=== PATIENT | male | born 1995 | race Caucasian/White ===

== ENCOUNTER 2019-04-25 21:37 | Emergency (ER) | payer OTHER, SELFPAY ==
--- OUTSIDE RECORDS SUMMARY | 2019-04-25 21:38 | XMS REPORT ---
:1995 [facility] Address [address] [place] [address] Dr. Almazan [address] [place] [id number] Care Team Providers Name Role Phone Unavailable Unavailable Unavailable Problems This patient has no known problems. Allergies, Adverse Reactions, Alerts This patient has no known allergies or adverse reactions. Medications This patient has no known medications.
[2019-04-25] MEDS ORDERED: ONDANSETRON 4 MG/2 ML VIAL ONE (22:13)
[2019-04-25] MEDS ORDERED: NA CHLORIDE 0.9% 1,000 ML ONE (22:13)
[2019-04-25] MEDS ORDERED: FAMOTIDINE 20 MG/2 ML VIAL IV ONE (22:13)
[2019-04-25 22:23] LABS: Absolute Lymphocytes (CBC) 1.5 K/uL (0.7-4.9); Basophils % 0.2 % (0-1.3); Hematocrit 43.7 % (39.6-49.0); Lymphocytes % 13.9 % (15.3-44.8); MPV 8.6 fL (7.6-11.3)
[2019-04-25 22:39] LABS: ALT/SGPT 36 U/L (12-78); AST/SGOT 21 U/L (15-37); Albumin 4.3 g/dL (3.4-5.0); Alkaline Phosphatase 53 U/L (45-117); BUN Blood Urea Nitrogen 17 mg/dL (7-18); Bicarbonate 27 mmol/L (21-32); Bilirubin Direct 0.2 mg/dL (0-0.2); Bilirubin Total 0.5 mg/dL (0.2-1.0); Glucose Level 90 mg/dL (74-106); Lipase 81 U/L (73-393); Potassium 3.7 mmol/L (3.5-5.1); Protein, Total 7.1 g/dL (6.4-8.2); Sodium Level 142 mmol/L (136-145)
--- NOTE | 2019-04-26 00:57 | ER ---
Nurse's Notes [facility] Name: Pako Fontaine Age: 23 yrs Sex: Male : 1995 Arrival Date: 04/25/2019 Time: 21:39 Bed 6 Private MD: Diagnosis: Diarrhea, unspecified Presentation: 04/25 21:46 Presenting complaint: Patient states: Diarrhea for 1.5 months with nausea. Past few ca1 days been feeling weak and dizzy. Pt also c/o headache. Transition of care: patient was not received from another setting of care. Onset of symptoms was April 25, 2019. Risk Assessment: Do you want to hurt yourself or someone else? Patient reports no desire to harm self or others. Initial Sepsis Screen: Does the patient meet any 2 criteria? No. Patient's initial sepsis screen is negative. Does the patient have a suspected source of infection? No. Patient's initial sepsis screen is negative. Care prior to arrival: None. 21:46 Method Of Arrival: Ambulatory ca1 21:46 Acuity: [place] 3 ca1 Historical: - Allergies: 21:48 Amoxicillin; ca1 - Home Meds: 21:48 None [Active]; ca1 - PMHx: 21:48 None; ca1 - PSHx: 21:48 Tonsillectomy; ca1 - Immunization history:: Adult Immunizations up to date, Flu vaccine is up to date. - Coronavirus screen:: The patient has NOT traveled to [place] in the past 14 days. The patient has NOT had contact with known/suspected case of Coronavirus?. - Social history:: Smoking status: Patient reports the use of cigarette tobacco products, 2-3 cigarettes a day. - Ebola Screening: : Patient negative for fever greater than or equal to 101.5 degrees Fahrenheit, and additional compatible Ebola Virus Disease symptoms Patient denies exposure to infectious person Patient denies travel to an Ebola-affected area in the 21 days before illness onset No symptoms or risks identified at this time. Screenin:52 Abuse screen: Denies threats or abuse. Denies injuries from another. Nutritional lp1 screening: No deficits noted. Tuberculosis screening: No symptoms or risk factors identified. Fall Risk None identified. Assessment: 21:50 General: Appears in no apparent distress. slender, Behavior is calm, cooperative, lp1 Reports fatigue for for months. Pain: Denies pain. Neuro: Level of Consciousness is awake, alert, obeys commands, Oriented to person, place, time, situation. Cardiovascular: Patient's skin is warm and dry. Respiratory: Respiratory effort is even, Respiratory pattern is regular. GI: Abdomen is flat, Bowel sounds present X 4 quads. Reports diarrhea, nausea. : No signs and/or symptoms were reported regarding the genitourinary system. EENT: No signs and/or symptoms were reported regarding the EENT system. Derm: Skin is intact, Skin is dry, Skin is normal. Musculoskeletal: No deficits noted. 23:30 Reassessment: Patient appears in no apparent distress at this time. Patient resting, lp1 eyes closed, respirations unlabored. 04/26 00:22 Reassessment: Patient appears in no apparent distress at this time. Patient returned lp1 from CT at this time; no complaints. 01:14 Reassessment: Patient appears in no apparent distress at this time. Patient is alert, rr5 oriented x 3, equal unlabored respirations, skin warm/dry/pink. discharge instruction given and explained without complaints made. Vital Signs: 04/25 21:48 BP 141 / 80; Pulse 69; Resp 16 S; Temp 98.4(O); Pulse Ox 100% on R/A; Weight 70.31 kg ca1 (R); Height 6 ft. 1 in. (185.42 cm) (R); Pain 6/10; 04/26 00:22 BP 133 / 75; Pulse 62; Resp 16; Pulse Ox 98% on R/A; lp1 01:14 BP 123 / 71; Pulse 65; Resp 17; Temp 98.2; Pulse Ox 99% ; rr5 04/25 21:48 Body Mass Index 20.45 (70.31 kg, 185.42 cm) ca1 ED Course: 04/25 21:39 Patient arrived in ED. ag3 21:43 Jayesh Barber PA is PHCP. cp 21:43 Duke Nicholas MD is Attending Physician. cp 21:47 Loretta Moore, DEONNA is Primary Nurse. lp1 21:47 Triage completed. ca1 21:48 Arm band placed on right wrist. ca1 21:52 Patient has correct armband on for positive identification. Placed in gown. lp1 22:05 Inserted saline lock: 20 gauge in right forearm, using aseptic technique. Blood lp1 collected. 04/26 00:23 No provider procedures requiring assistance completed. lp1 00:54 Candido Simon MD is Referral Physician. cp 01:15 IV discontinued, intact, bleeding controlled, No redness/swelling at site. Pressure rr5 dressing applied. Administered Medications: 04/25 22:18 Drug: Pepcid 20 mg Route: IVP; Site: right forearm; lp1 23:40 Follow up: Response: No adverse reaction lp1 22:18 Drug: NS 0.9% 1000 ml Route: IV; Rate: 1 bolus; Site: right forearm; lp1 23:30 Follow up: IV Status: Completed infusion; IV Intake: 1000ml lp1 22:19 Drug: Zofran 4 mg Route: IVP; Site: right forearm; lp1 23:40 Follow up: Response: No adverse reaction lp1 Intake: 23:30 IV: 1000ml; Total: 1000ml. lp1 Outcome: 04/26 00:56 Discharge ordered by . cp 01:15 Patient left the ED. rr5 01:15 Discharged to home ambulatory. rr5 01:15 Condition: stable 01:15 Discharge instructions given to patient, Instructed on discharge instructions, follow up and referral plans. Demonstrated understanding of instructions, follow-up care. Signatures: Loretta Moore RN RN lp1 Jayesh Barber PA PA cp Gomez, Alice ag3 Zack Rodriguez RN RN rr5 Trisha Gilliam RN RN ca1
--- NOTE | 2019-04-26 00:57 | EDPHYS ---
Physician Documentation [facility] Name: Pako Fontaine Age: 23 yrs Sex: Male : 1995 Arrival Date: 04/25/2019 Time: 21:39 Bed 6 Private MD: ED Physician Duke Nicholas HPI: 04/25 21:59 This 23 yrs old Male presents to ER via Ambulatory with complaints of cp Diarrhea. 21:59 The patient presents to the emergency department with diarrhea. Onset: The cp symptoms/episode began/occurred 1.5 month(s) ago. Possible causes: unknown. Associated signs and symptoms: Pertinent positives: anorexia, nausea, Pertinent negatives: abdominal pain, fever, GI bleeding, vomiting. Historical: - Allergies: 21:48 Amoxicillin; ca1 - Home Meds: 21:48 None [Active]; ca1 - PMHx: 21:48 None; ca1 - PSHx: 21:48 Tonsillectomy; ca1 - Immunization history:: Adult Immunizations up to date, Flu vaccine is up to date. - Coronavirus screen:: The patient has NOT traveled to [place] in the past 14 days. The patient has NOT had contact with known/suspected case of Coronavirus?. - Social history:: Smoking status: Patient reports the use of cigarette tobacco products, 2-3 cigarettes a day. - Ebola Screening: : Patient negative for fever greater than or equal to 101.5 degrees Fahrenheit, and additional compatible Ebola Virus Disease symptoms Patient denies exposure to infectious person Patient denies travel to an Ebola-affected area in the 21 days before illness onset No symptoms or risks identified at this time. ROS: 22:05 Constitutional: Negative for body aches, chills, fever, weight loss. cp 22:05 Eyes: Negative for injury, pain, redness, and discharge. cp 22:05 ENT: Negative for drainage from ear(s), ear pain, sore throat, difficulty swallowing, difficulty handling secretions. 22:05 Cardiovascular: Negative for chest pain. 22:05 Respiratory: Negative for cough, shortness of breath, wheezing. 22:05 Abdomen/GI: Positive for nausea, diarrhea, anorexia, Negative for abdominal pain, vomiting, constipation, black/tarry stool, rectal bleeding. 22:05 : Negative for urinary symptoms, testicular pain 22:05 Skin: Negative for rash. 22:05 Neuro: Negative for altered mental status, headache, weakness. 22:05 All other systems are negative. Exam: 22:15 Constitutional: The patient appears in no acute distress, alert, awake, non-toxic, well cp developed, well nourished. 22:15 Head/Face: Normocephalic, atraumatic. cp 22:15 Eyes: Periorbital structures: appear normal, Conjunctiva: normal, no exudate, no injection, Sclera: no appreciated abnormality, Lids and lashes: appear normal, bilaterally. 22:15 ENT: External ear(s): are unremarkable, Nose: is normal, Mouth: Lips: moist, Oral mucosa: pink and intact, moist, Posterior pharynx: is normal, airway is patent, no erythema, no exudate. 22:15 Chest/axilla: Inspection: normal, Palpation: is normal, no crepitus, no tenderness. 22:15 Cardiovascular: Rate: normal, Rhythm: regular. 22:15 Respiratory: the patient does not display signs of respiratory distress, Respirations: normal, no use of accessory muscles, labored breathing, is not present, Breath sounds: are clear throughout, no decreased breath sounds. 22:15 Abdomen/GI: Inspection: abdomen appears normal, Bowel sounds: active, all quadrants, Palpation: abdomen is soft and non-tender, in all quadrants, rebound tenderness, is not appreciated, voluntary guarding, is not appreciated, involuntary guarding, is not appreciated. 22:15 Back: pain, is absent, ROM is normal. 22:15 Skin: no rash present. Vital Signs: 21:48 BP 141 / 80; Pulse 69; Resp 16 S; Temp 98.4(O); Pulse Ox 100% on R/A; Weight 70.31 kg ca1 (R); Height 6 ft. 1 in. (185.42 cm) (R); Pain 6/10; 04/26 00:22 BP 133 / 75; Pulse 62; Resp 16; Pulse Ox 98% on R/A; lp1 01:14 BP 123 / 71; Pulse 65; Resp 17; Temp 98.2; Pulse Ox 99% ; rr5 04/25 21:48 Body Mass Index 20.45 (70.31 kg, 185.42 cm) ca1 MDM: 04/25 21:45 Patient medically screened. cp 22:00 Differential diagnosis: gastritis, gastroenteritis, colitis, infectious diarrhea, cp hepatitis. 04/26 00:55 Data reviewed: vital signs, nurses notes, lab test result(s), radiologic studies, CT cp scan, I have discussed the patient's presentation/case with the attending Emergency Department Physician; and as a result, I will discharge patient. 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 04/25 21:59 Order name: Basic Metabolic Panel cp 04/25 21:59 Order name: CBC with Diff cp 04/25 21:59 Order name: Creatinine for Radiology cp 04/25 21:59 Order name: Hepatic Function cp 04/25 21:59 Order name: Lipase cp 04/25 22:37 Order name: Creatinine (Radiology Only); Complete Time: 23:40 EDMS 04/25 22:42 Order name: Basic Metabolic Panel; Complete Time: 23:40 EDMS 04/25 22:42 Order name: Liver (Hepatic) Function; Complete Time: 23:40 EDMS 04/25 22:42 Order name: Lipase; Complete Time: 23:40 EDMS 04/25 22:42 Order name: CBC with Automated Diff; Complete Time: 23:40 EDMS 04/26 00:47 Interpretation: Normal except: WBC 11.0; CHRISTY% 79.8; LYM% 13.9; NEUT A 8.8. cp 04/25 23:41 Order name: CT Abd/Pelvis - IV Contrast Only cp 04/25 23:41 Order name: Stool Culture cp 04/25 23:41 Order name: CDIFF cp 04/25 21:59 Order name: IV Saline Lock; Complete Time: 22:09 cp 04/25 21:59 Order name: Labs collected and sent; Complete Time: 22:09 cp Administered Medications: 04/25 22:18 Drug: Pepcid 20 mg Route: IVP; Site: right forearm; lp1 23:40 Follow up: Response: No adverse reaction lp1 22:18 Drug: NS 0.9% 1000 ml Route: IV; Rate: 1 bolus; Site: right forearm; lp1 23:30 Follow up: IV Status: Completed infusion; IV Intake: 1000ml lp1 22:19 Drug: Zofran 4 mg Route: IVP; Site: right forearm; lp1 23:40 Follow up: Response: No adverse reaction lp1 Disposition: 04/26 01:57 Co-signature as Attending Physician, Duke Nicholas MD. rn Disposition: 04/26/19 00:56 Discharged to Home. Impression: Diarrhea, unspecified. - Condition is Stable. - Discharge Instructions: Food Choices to Help Relieve Diarrhea, Adult, Diarrhea, Adult. - Medication Reconciliation Form, Thank You Letter, Antibiotic Education, Prescription Opioid Use form. - Follow up: Candido Simon MD; When: 1 - 2 days; Reason: Recheck today's complaints. - Problem is an ongoing problem. - Symptoms have improved. Signatures: Dispatcher [employer] EDMS Duke Nicholas MD MD rn Loretta Moore RN RN lp1 Jayesh Barber PA PA cp Roque, Raymond RN RN rr5 Trisha Gilliam RN RN ca1 Corrections: (The following items were deleted from the chart) 01:15 00:56 04/26/2019 00:56 Discharged to Home. Impression: Diarrhea, unspecified. Condition rr5 is Stable. Forms are Medication Reconciliation Form, Thank You Letter, Antibiotic Education, Prescription Opioid Use. Follow up: Candido Simon; When: 1 - 2 days; Reason: Recheck today's complaints. Problem is an ongoing problem. Symptoms have improved. cp
--- NOTE | 2019-04-26 08:35 | RAD REPORT ---
EXAM DESCRIPTION: CT - Abdomen Pelvis W Contrast - 04/26/2019 1:52 am CLINICAL HISTORY: The patient is 23 years old and is Male; diarrhea times 1.5 months TECHNIQUE: Axial computed tomography images of the abdomen and pelvis with intravenous contrast. S agittal and coronal reformatted images were created and reviewed. This CT exam was performed using one or more of the following dose reduction techniques: automated exposure control, adjustment of t he mA and/or kV according to patient size, and/or use of iterative reconstruction technique. COMPARISON: No relevant prior studies available. FINDINGS: LUNG BASES: Unremarkable. No mass. No consolidation. ABDOMEN: LIVER: Periportal edema is visualized within the liver. No liver masses identified. GALLBLADDER AND BILE DUCTS: The gallbladder is contracted. PANCREAS: No ductal dilation. No mass. SPLEEN: Unremarkable. ADRENALS: Unremarkable. No mass. KIDNEYS AND URETERS: Unremarkable. The kidneys enhance symmetrically. No obstructing renal or ur eteral calculus is seen. No hydronephrosis or hydroureter. No perinephric fluid or stranding. STOMACH AND BOWEL: The stomach is moderately distended with food contents. The small bowel is no rmal in caliber. A moderate amount stool is present throughout colon. There is no mucosal thickening or evidence of bowel obstruction. PELVIS: APPENDIX: The appendix is normal in caliber without surrounding inflammation. BLADDER: The bladder is well distended. REPRODUCTIVE: Unremarkable as visualized. ABDOMEN and PELVIS: INTRAPERITONEAL SPACE: Unremarkable. No free air. No significant fluid collection. BONES/JOINTS: No acute fracture. SOFT TISSUES: The soft tissues are normal. VASCULATURE: Unremarkable. No abdominal aortic aneurysm. LYMPH NODES: Unremarkable. No enlarged lymph nodes. IMPRESSION: 1. Moderate stool burden without obstruction. 2. Periportal edema. This finding is nonspecific and can be seen with vigorous intravenous hydratio n as well as hepatitis. Clinical correlation is recommended. Electronically signed by: Rhina Castillo MD 04/26/2019 12:37 AM PARALEGAL INSTRUCTOR Due to temporary technical issues with the PACS/Fluency reporting system, reports are being signed by the in house radiologist as a courtesy to ensure prompt reporting. The interpreting radiologist is f ully responsible for the content of the report.
[2019-04-26 17:22] VITALS: BP 123/71; TEMP 98.2; O2SAT 99
== END 2019-04-26 01:15 | disposition home or self-care (01) ==
LOC: ER 21:37
DX: R19.7 Diarrhea, unspecified (principal); Z72.0 Tobacco use; Z88.1 Allergy status to other antibiotic agents
CPT/HCPCS: 36415; 74177; 80048; 80076; 83690; 85025; 96361; 96374; 96375; 99283; J2405; J7030; Q9967

== ENCOUNTER 2019-05-14 16:33 | Emergency (ER) | payer OTHER ==
--- OUTSIDE RECORDS SUMMARY | 2019-05-14 16:34 | XMS REPORT ---
:1995 [facility] Address [address] [place] [address] Dr. Almazan [address] [place] [id number] Care Team Providers Name Role Phone Unavailable Unavailable Unavailable Problems This patient has no known problems. Allergies, Adverse Reactions, Alerts This patient has no known allergies or adverse reactions. Medications This patient has no known medications.
--- OUTSIDE RECORDS SUMMARY | 2019-05-14 16:35 | XMS REPORT | Summary of Care ---
:1995 Author Organization [facility] [employer] Address [address] [place] [id number] Care Team Providers Name Role Phone Pcp, Patient Does Not Have A Primary Care Provider Reason for Referral Radiology Services (STAT) Status Reason Specialty Diagnoses / Referred By Referred To Procedures Contact Contact New Request Diagnostic Diagnoses Finger injury, right, initial encounter Erickson Renae Radiology Procedures XR HAND 3+ VW RIGHT XR HAND <3 VW RIGHT III, PA [address] [facility] [place] [place] [address] Reason for Visit Reason Comments Finger Pain Right Index Finger Auth/Cert Status Reason Specialty Diagnoses / Referred By Referred To Procedures Contact Contact [facility] [address] [place] [address] Encounter Details Date Type Department Care Team Description 11/11/2018 Emergency ADC-Emergency Erickson Renae III, Finger injury, right, Department PA initial encounter [address] [facility] [address] [facility] (Primary Dx) [place] [address] [place] [address] Allergies Active Allergy Reactions Severity Noted Date Comments Amoxicillin Unknown - See comments 01/17/2017 documented as of this encounter (statuses as of 11/11/2018) Medications Medication Sig Dispensed Refills Start Date End Date Status ondansetron (ZOFRAN, Take 1 tablet by 12 tablet 0 01/17/2017 Active HYDROCHLORIDE,) 4 mouth every 8 mg tablet (eight) hours as needed for Nausea and Vomiting (N/V). dicyclomine (BENTYL) Take 1 tablet by 20 tablet 0 01/17/2017 Active 20 mg tablet mouth 4 (four) times daily. ondansetron (ZOFRAN) 4 Take 1 tablet by 12 tablet 0 08/16/2018 Active mg tabletIndications: mouth every 8 Strain of neck muscle, (eight) hours as initial encounter needed for Nausea and Vomiting (N/V). naproxen sodium 550 mg Take 1 tablet by 14 tablet 0 08/16/2018 Active tabletIndications: mouth 2 (two) Strain of neck muscle, times daily with initial encounter meals. methocarbamol Take 1 tablet by 20 tablet 0 08/16/2018 Active (ROBAXIN) 500 mg mouth 4 (four) tabletIndications: times daily. Strain of neck muscle, initial encounter ibuprofen 600 mg Take 1 tablet by 10 tablet 0 11/11/2018 11/16/2018 Active tabletIndications: mouth 4 (four) Finger injury, right, times daily as initial encounter needed for Pain (scale 4-6) for up to 5 days. acetaminophen Take 3 tablets 60 tablet 0 11/11/2018 11/16/2018 Active (TYLENOL) 325 mg by mouth 4 tabletIndications: (four) times Finger injury, right, daily for 5 initial encounter days. This is the maximum safe dose for a healthy adult. documented as of this encounter (statuses as of 11/11/2018) Active Problems No known active problemsdocumented as of this encounter (statuses as of 2018) Social History Tobacco Use Types Packs/Day Years Used Date Never Assessed Sex Assigned at Date Recorded Not on file Job Start Date Occupation Industry Not on file Not on file Not on file Travel History Travel Start Travel End No recent travel history available. documented as of this encounter Last Filed Vital Signs Vital Sign Reading Time Taken Comments Blood Pressure 132/64 11/11/2018 6:53 PM CDT Pulse 70 11/11/2018 6:53 PM CDT Temperature 37.5 C (99.5 F) 11/11/2018 6:53 PM CDT Respiratory Rate 18 11/11/2018 6:53 PM CDT Oxygen Saturation 98% 11/11/2018 6:53 PM CDT Inhaled Oxygen Concentration - - Weight 68 kg (150 lb) 11/11/2018 6:53 PM CDT Height 182.9 cm (6') 11/11/2018 6:53 PM CDT Body Mass Index 20.34 11/11/2018 6:53 PM CDT documented in this encounter Discharge Instructions Erickson Mata III, PA - 11/11/2018 @@@@@@@@@@@@@@@@@@@@@@@@@@@@@@@@@@@@@@@@@@@@@@@@@@@@@ [facility] RETURN TO WORK / SCHOOL EXCUSE Pako Fontaine WAS SEEN IN THE ER AND DISCHARGED 11/11/2018 TODAY, 6:58 PM & May return to Work / School / Incarceration on 11/12/18 with No limitations unless indicated below. ___The following limitations apply until pt is seen by Physician and cleared to return to normal activity. ___ Light duty ___ No Sports ___ No work ___ Do not return until fever free for 24 hours. ___ No school [employer] [facility] [address] [place] [address] [place] [address] If you are unprepared to return to work tomorrow due to pain please give this note to your employer and make a follow up appointment with your MD for further evaluation and limitations. ### The patient may have been given Narcotic pain medications during their stay in the ED that may show up on a Drug Screen. The hospital discharge paper work will identify these medications. @@@@@@@@@@@@@@@@@@@@@@@@@@@@@@@@@@@@@@@@@@@@@@@@@@@@@ Thank you for trusting us with your care. The emergency room is the first stop in the medical management of your complaint . Our primary pupose is to identify life threatening emergancies and to rapidly address those issues. We are releasing you today after evaluation for emergency or life threatening problems related to your complaint. At this time we are comfortable that your condition is stable enough to go home, take oral medications and follow up for further care. If you can't afford a doctor OR MEDICATIONS consider Clinic [facility], [address] [place], [place]; [phone] Medications [email or web address] WILL SHOW YOU WHERE YOU CAN GET YOUR MEDICATIONS CHEAPEST. 1. Call your doctor and let them know you were seen for ICD-10-CM ICD-9-CM 1. Finger injury, right, initial encounter S69.91XA 959.5 2. Schedule a follow up within 3 days of your ER visit. 3. Take your prescriptions to the pharmacy and get them filled today. 4. Take the medications as prescribed and until completed. 5. You have been referred for further care 6. You may need additional tests Your doctors will help you figure out what you need and how to get them done. 7. Please read all paperwork provided to you. Additional instructions See Attached documented in this encounter Plan of Treatment Name Type Priority Associated Diagnoses Date/Time XR HAND 3+ VW RIGHT IMAGING STAT Finger injury, right, 11/11/2018 7:12 PM CDT initial encounter Health Maintenance Due Date Last Done Comments VARICELLA VACCINES (1 of 2 - 13+ 06/29/2007 2-dose series) DTaP,Tdap,and Td Vaccines ( - 2013 Tdap) INFLUENZA VACCINE (Retired 11/11/2018 version) HPV VACCINES Aged Out No longer eligible based on patient's age to complete this topic PNEUMOCOCCAL 0-64 YEARS COMBINED Aged Out No longer eligible based on SERIES patient's age to complete this topic documented as of this encounter Procedures Procedure Name Priority Date/Time Associated Diagnosis Comments XR HAND 3+ VW RIGHT STAT 11/11/2018 7:12 PM CDT Finger injury, right, initial encounter Procedure Note - [facility], Radiant Results Inft User - 11/11/2018 7:23 PM CDT EXAM: XR HAND 3+ VW RIGHT HISTORY: 23 years-old Male presenting with right hand index finger crush injury COMPARISON: No prior studies available for comparison. FINDINGS: Radiographs of the right hand demonstrate no acute fracture or dislocation. The joint spaces are preserved. Soft tissue swelling of the index finger is noted. IMPRESSION No acute bony abnormality. NOTICE OF PRIVACY PRACTICES Routine 11/11/2018 6:43 PM CDT CONSENT/REFUSAL FOR DIAGNOSIS AND TREATMENT Routine 11/11/2018 6:42 PM CDT documented in this encounter Results Not on filedocumented in this encounter Visit Diagnoses Diagnosis Finger injury, right, initial encounter - Primary documented in this encounter (Work) [id number] documented as of this encounter
--- NOTE | 2019-05-14 17:35 | EDPHYS ---
Physician Documentation [facility] Name: Pako Fontaine Age: 23 yrs Sex: Male : 1995 Arrival Date: 05/14/2019 Time: 16:35 Bed 30 Private MD: LYDIA Physician Ant Mccullough HPI: 05/13 20:19 This 23 yrs old Male presents to ER via Ambulatory with complaints of tw4 Toothache, Headache. 20:19 The patient presents with broken tooth/teeth, lost tooth/teeth, pain. The problem is tw4 located in the upper left second bicuspid, upper left second molar and upper left third molar. Onset: The symptoms/episode began/occurred 1 year(s) ago. Duration: The symptoms are continuous, and are steadily getting worse. Modifying factors: The symptoms are alleviated by nothing, the symptoms are aggravated by nothing. Associated signs and symptoms: The patient has no apparent associated signs or symptoms. The patient has not experienced similar symptoms in the past. Historical: - Allergies: 17:07 Amoxicillin; ca1 - Home Meds: 17:07 None [Active]; ca1 - PMHx: 17:07 None; ca1 - PSHx: 17:07 Tonsillectomy; Ear Tubes; ca1 - Immunization history:: Adult Immunizations up to date, Last tetanus immunization: < 5 years ago Flu vaccine is up to date. - Social history:: Smoking status: Patient/guardian denies using tobacco, but has a distant history of tobacco abuse. ROS: 20:19 Constitutional: Negative for fever, chills, and weight loss, ENT: Negative for injury, tw4 pain, and discharge, Cardiovascular: Negative for chest pain, palpitations, and edema, Respiratory: Negative for shortness of breath, cough, wheezing, and pleuritic chest pain, Abdomen/GI: Negative for abdominal pain, nausea, vomiting, diarrhea, and constipation, Back: Negative for injury and pain, MS/Extremity: Negative for injury and deformity, Skin: Negative for injury, rash, and discoloration, Neuro: Negative for headache, weakness, numbness, tingling, and seizure. 20:19 ENT: Positive for dental pain, Negative for drainage from ear(s), ear pain, foreign body sensation, Gum pain hearing loss, pulling at ears, Teeth pain tinnitus, nasal discharge, rhinorrhea, sinus congestion, sinus pain, sore throat, difficulty handling secretions, hoarseness. Exam: 20:19 Constitutional: This is a well developed, well nourished patient who is awake, alert, tw4 and in no acute distress. Head/Face: Normocephalic, atraumatic. Eyes: Pupils equal round and reactive to light, extra-ocular motions intact. Lids and lashes normal. Conjunctiva and sclera are non-icteric and not injected. Cornea within normal limits. Periorbital areas with no swelling, redness, or edema. Neck: Trachea midline, no thyromegaly or masses palpated, and no cervical lymphadenopathy. Supple, full range of motion without nuchal rigidity, or vertebral point tenderness. No Meningismus. 20:19 ENT: Dental exam: dental caries, that is moderate, specifically in the upper left first bicuspid (#12), upper left second bicuspid (#13) and upper left second molar (#15), fractured teeth are noted, specifically the upper left first bicuspid (#12), upper left second bicuspid (#13) and upper left second molar (#15). Vital Signs: 17:04 BP 127 / 75; Pulse 78; Resp 16 S; Temp 97.3(TE); Pulse Ox 99% on R/A; Weight 70.31 kg ca1 (R); Height 6 ft. 1 in. (185.42 cm) (R); 17:04 Body Mass Index 20.45 (70.31 kg, 185.42 cm) ca1 MDM: 17:23 Patient medically screened. tw4 17:33 Medical screen evaluation completed. [facility]. tw4 20:19 Differential diagnosis: dental caries, gingivitis. Differential diagnosis: dental tw4 abscess, pericoronitis. Data reviewed: vital signs, nurses notes. Data interpreted: Pulse oximetry: Interpretation: normal. Counseling: I had a detailed discussion with the patient and/or guardian regarding: the historical points, exam findings, and any diagnostic results supporting the discharge/admit diagnosis. Administered Medications: No medications were administered Disposition: 05/14/19 17:34 Discharged to Home. Impression: Dental caries, unspecified. - Condition is Stable. - Medication Reconciliation Form, Thank You Letter, Antibiotic Education, Prescription Opioid Use form. - Follow up: Private Physician; When: Upon discharge from the Emergency Department; Reason: Recheck today's complaints, Continuance of care, Re-evaluation by your physician. - Problem is an ongoing problem. - Symptoms are unchanged. Signatures: Zuleyka Carlson RN RN Ant Narayan MD MD tw4 Trisha Gilliam RN RN ca1 Corrections: (The following items were deleted from the chart) 17:41 17:34 05/14/2019 17:34 Discharged to Home. Impression: Dental caries, unspecified. iw Condition is Stable. Forms are Medication Reconciliation Form, Thank You Letter, Antibiotic Education, Prescription Opioid Use. Follow up: Private Physician; When: Upon discharge from the Emergency Department; Reason: Recheck today's complaints, Continuance of care, Re-evaluation by your physician. Problem is an ongoing problem. Symptoms are unchanged. tw4
--- NOTE | 2019-05-14 17:35 | ER ---
Nurse's Notes [facility] Name: Pako Fontaine Age: 23 yrs Sex: Male : 1995 Arrival Date: 05/14/2019 Time: 16:35 Bed 30 Private MD: Diagnosis: Dental caries, unspecified Presentation: 05/13 17:04 Chief complaint: Patient states: Toothache x 1 year. C/O pain on L side of face. ca1 Coronavirus screen: The patient has NOT traveled to [place] in the past 14 days. The patient has NOT had contact with known and/or suspected case of Coronavirus. Ebola Screen: Patient negative for fever greater than or equal to 101.5 degrees Fahrenheit, and additional compatible Ebola Virus Disease symptoms Patient denies exposure to infectious person. Patient denies travel to an Ebola-affected area in the 21 days before illness onset. No symptoms or risks identified at this time. Initial Sepsis Screen: Does the patient meet any 2 criteria? No. Patient's initial sepsis screen is negative. Does the patient have a suspected source of infection? No. Patient's initial sepsis screen is negative. Risk Assessment: Do you want to hurt yourself or someone else? Patient reports no desire to harm self or others. Onset of symptoms was May 14, 2019. 17:04 Method Of Arrival: Ambulatory ca1 17:04 Acuity: [place] 5 ca1 Historical: - Allergies: 17:07 Amoxicillin; ca1 - Home Meds: 17:07 None [Active]; ca1 - PMHx: 17:07 None; ca1 - PSHx: 17:07 Tonsillectomy; Ear Tubes; ca1 - Immunization history:: Adult Immunizations up to date, Last tetanus immunization: < 5 years ago Flu vaccine is up to date. - Social history:: Smoking status: Patient/guardian denies using tobacco, but has a distant history of tobacco abuse. Vital Signs: 17:04 BP 127 / 75; Pulse 78; Resp 16 S; Temp 97.3(TE); Pulse Ox 99% on R/A; Weight 70.31 kg ca1 (R); Height 6 ft. 1 in. (185.42 cm) (R); 17:04 Body Mass Index 20.45 (70.31 kg, 185.42 cm) ca1 ED Course: 16:35 Patient arrived in ED. rg4 17:06 Triage completed. ca1 17:07 Arm band placed on right wrist. ca1 17:23 Ant Mccullough MD is Attending Physician. tw4 Administered Medications: No medications were administered Outcome: 17:34 Discharge ordered by . tw4 17:41 Patient left the ED. iw Signatures: Zuleyka Carlson, RN RN Erum Frederick rg4 Ant Mccullough MD MD 4 Trisha Gilliam RN RN ca1
[2019-05-14 18:57] VITALS: BP 127/75; TEMP 97.3; O2SAT 99
== END 2019-05-14 17:41 | disposition home or self-care (01) ==
LOC: ER 16:33
DX: K02.9 Dental caries, unspecified (principal); Z88.1 Allergy status to other antibiotic agents
CPT/HCPCS: 99281

== ENCOUNTER 2019-11-29 04:32 | Emergency (ER) | payer OTHER ==
--- OUTSIDE RECORDS SUMMARY | 2019-11-29 04:34 | XMS REPORT | Summary of Care ---
:1995 Author Organization [facility] Address [address] [place] [address] Care Team Providers Name Role Phone BEN Pfeiffer Primary Care Provider Reason for Visit Reason Comments Cancellation (Routine) Status Reason Specialty Diagnoses / Procedures Referred By Barney carrera To Contact Contact New Request Gastroenterology Diagnoses Diarrhea, unspecified type Corey, Rosemarie Procedures CONSULT/REFERRAL GASTROENTEROLOGY A, PA [address] [place] [address] [place] [address] Encounter Details Date Type Department Care Team Description 09/10/2019 Telemedicine Visit [facility] Ronquillo MD [address] [facility] [id number] [place] [address] CANCELLATION (Primary Gastroenterology-Leandro Rosenberg MD [address] [place] [address] Dx) [place] [id number] [facility], [address]th [place] [address] Allergies Active Allergy Reactions Severity Noted Date Comments Amoxicillin Unknown - See comments 01/17/2017 documented as of this encounter (statuses as of 09/10/2019) Medications Medication Sig Dispensed Refills Start Date End Date Status ibuprofen 600 mg Take 1 tablet by 20 tablet 0 08/25/2019 Active tabletIndications: Rib mouth every 6 pain, Acute right-sided (six) hours as low back pain without needed for Pain sciatica (scale 4-6). methocarbamol 500 mg Take 1 tablet by 20 tablet 0 08/25/2019 Active tabletIndications: Rib mouth 4 (four) pain, Acute right-sided times daily. low back pain without sciatica meclizine 12.5 mg Take 1-2 tablets 30 tablet 0 08/30/2019 Active tabletIndications: by mouth 3 Dizziness, Hypoglycemia (three) times daily as needed for Dizziness. documented as of this encounter (statuses as of 09/10/2019) Active Problems Problem Noted Date Dizziness documented as of this encounter (statuses as of 09/10/2019) Social History Tobacco Use Types Packs/Day Years Used Date Former Smoker Cigarettes Quit: 06/17/19 20 Smokeless Tobacco: Never Used Alcohol Use Drinks/Week oz/Week Comments Not Currently Sex Assigned at Date Recorded Not on file Job Start Date Occupation Industry Not on file Not on file Not on file Travel History Travel Start Travel End No recent travel history available. COVID-19 Exposure Response Date Recorded In the last month, have you been in contact with No / Unsure 08/30/2019 9:01 AM CDT someone who was confirmed or suspected to have Coronavirus / COVID-19? documented as of this encounter Last Filed Vital Signs Not on filedocumented in this encounter Progress Notes Leandro Walker MD - 09/10/2019 9:30 AM CDTAttempted to call the patient. No answer. Left him a message to call back. Will contact scheduling staff to reschedule an appointment. documented in this encounter Plan of Treatment Health Maintenance Due Date Last Done Comments VARICELLA VACCINES (1 of 2 - 06/29/1995 2-dose childhood series) DTaP,Tdap,and Td Vaccines (1 - 2005 Tdap) INFLUENZA VACCINE (Season Ended) 2019 Depression Screening 05/19/2020 05/20/2019 HPV VACCINES Aged Out No longer eligib lisa based on patient's age to complete this topic PNEUMOCOCCAL 0-64 YEARS COMBINED Aged Out No longer eligible based on SERIES patient's age to complete this topic documented as of this encounter Results Not on filedocumented in this encounter Visit Diagnoses Diagnosis CANCELLATION - Primary documented in this encounter Additional Health Concerns Infection Onset Date Last Indicated Resolved Time COVID-19 Rule Out 07/21/2019 07/21/2019 documented as of this encounter Insurance Payer Benefit Plan / Subscriber ID Effective Phone Address T ype [facility] xxxxxxxxx 2019-Pres [address] Medic aid HEALTH CHOICE - HEALTH CHOICE ent [id number] 1 MANAGED MEDICAID [place], [place] MEDICAID [phone] documented as of this encounter
--- OUTSIDE RECORDS SUMMARY | 2019-11-29 04:34 | XMS REPORT | Summary of Care ---
:1995 Author Organization [facility] Address [address] [place] [address] Care Team Providers Name Role Phone Kentrell BEN Primary Care Provider Reason for Visit Reason Comments New Patient Establish Care Dizziness Confusion (Routine) Status Reason Specialty Diagnoses / Referred By Contact Refe rred To Contact Procedures Closed Neurology Diagnoses Dizziness [place], Wondiful Mikhail Rodríguez, Procedures CONSULT/REFERRAL NEUROLOGY MD KIANNA Galicia [address] [facility] [place] [phone] Phone: Fax: Encounter Details Date Type Department Care Team Description 10/01/2019 Office Visit [facility] Mikhail Rodríguez Syncope and collapse (Primary Dx); Neurology-Iesha Barkley MD Bradycardia by electrocardiogram [address], [address] [facility] [place] [phone] Allergies Active Allergy Reactions Severity Noted Date Comments Amoxicillin Unknown - See comments 01/17/2017 documented as of this encounter (statuses as of 10/03/2019) Medications Medication Sig Dispensed Refills Start Date [...] as of this encounter (statuses as of 10/03/2019) Active Problems Problem Noted Date Dizziness documented as of this encounter (statuses as of 10/03/2019) Social History Tobacco Use Types Packs/Day Years [...] been in contact with No / Unsure 10/01/2019 1:04 PM CDT someone who was confirmed or suspected to have Coronavirus / COVID-19? documented as of this encounter Last Filed Vital Signs Vital Sign Reading Time Taken Comments Blood Pressure 125/76 10/01/2019 1:10 PM CDT Pulse 59 10/01/2019 1:10 PM CDT Temperature 36.7 C (98 F) 10/01/2019 1:10 PM CDT Respiratory Rate 18 10/01/2019 1:10 PM CDT Oxygen Saturation - - Inhaled Oxygen Concentration - - Weight 68.8 kg (151 lb 9.6 oz) 10/01/2019 1:10 PM CDT Height 185.4 cm (6' 1") 10/01/2019 1:10 PM CDT Body Mass Index 20 10/01/2019 1:10 PM CDT documented in this encounter Progress Notes Mikhail Rodríguez MD - 10/01/2019 1:00 PM CDT I have verified the medical student documentation and/or findings, including the history, physical exam, and medical decision making for the patient Pako Fontaine on 10/01/19. Additionally, I have personally performed or re-performed the physical and neurological exam and medical decision making activities of this patient's evaluation and management service. Mikhail Rodríguez MD [employer] Neurology HISTORY OF PRESENT ILLNESS: Pako Fontaine is a 24 year old male with a history of anxiety and depression who presents for syncopal episodes, onset about 15 years ago. Patient reports these episodes occur about once every other week, and start out with his vision going black, palpitations, nausea, and diaphoresis. Patient reports there is no known trigger. He reports sitting down and waiting will resolve these episodes. He reports sometimes experiencing loss of consciousness. Patient denies spinning sensation. He reports he also experiences occasional panic attacks with his anxiety, and that these episodes feel different than those. Patient reports a history of sudden cardiac in a maternal uncle in his early 30s. PMH: has a past medical history of Anxiety, Depression, and Dizziness. ROS questions to the patient. Cardiac: chest pain, shortness of breath, easy fatigue, palpitations, swelling of legs. Respiratory: cough, with sputum production, wheezing, insomnia. G.I.: nausea, vomiting, diarrhea, poor appetite, blood in stool, difficult swallow. Urinary: pain with urination, blood with urination, incontinence, difficulty urinating. Skin: discoloration, itching, change in hair or nails, skin breakdown. Hematology/immunology: easy bruising, malignancy. Head, nose, throat: ringing of ears, loss of hearing, nosebleeds, sores in mouth, hoarseness, facial pain, Neurology: dizziness, tremor, change in speech, seizures, fainting spells, loss of memory, weakness arm or leg, numbness arm or leg, word finding defect. Endocrine: hot cold intolerance, excessive urination, increased thirst, increased sweating. Psychiatric: disorientation, depression, anxiety, mood disorder, loss of contact with reality, anger. Eyes: change in vision, eye pain, double vision, blurred vision, eyelid droop. Skeletal: pain in joints, muscle pain, back pain, neck pain, swelling of joints, swelling of the hands. Pertinent patient responses: The patient did not respond positively to any of the posed questions. Current Outpatient Medications: meclizine 12.5 mg tablet, Take 1-2 tablets by mouth 3 (three) times daily as needed for Dizziness., Disp: 30 tablet, Rfl: 0 ibuprofen 600 mg tablet, Take 1 tablet by mouth every 6 (six) hours as needed for Pain (scale 4-6)., Disp: 20 tablet, Rfl: 0 methocarbamol 500 mg tablet, Take 1 tablet by mouth 4 (four) times daily., Disp: 20 tablet, Rfl: 0 Family History Problem Relation Age of Onset Sudden cardiac Maternal Uncle Past Surgical History: Procedure Laterality Date ADENOIDECTOMY APPENDECTOMY AR HAND/FINGER SURGERY UNLISTED R fracture repair TONSILLECTOMY Social History Socioeconomic History Marital status: Single Spouse name: Not on file Number of children: Not on file Years of education: Not on file Highest education level: Not on file Occupational History Not on file Social Needs Financial resource strain: Not on file Food insecurity: Worry: Not on file Inability: Not on file Transportation needs: Medical: Not on file Non-medical: Not on file Tobacco Use Smoking status: Former Smoker Types: Cigarettes Last attempt to quit: 06/17/2019 Years since quittin.2 Smokeless tobacco: Never Used Substance and Sexual Activity Alcohol use: Not Currently Drug use: Not on file Sexual activity: Not on file Lifestyle Physical activity: Days per week: Not on file Minutes per session: Not on file Stress: Not on file Relationships Social connections: Talks on phone: Not on file Gets together: Not on file Attends hindu service: Not on file Active member of club or organization: Not on file Attends meetings of clubs or organizations: Not on file Relationship status: Not on file Intimate partner violence: Fear of current or ex partner: Not on file Emotionally abused: Not on file Physically abused: Not on file Forced sexual activity: Not on file Other Topics Concern Not on file Social History Narrative Lives at home with and 2 kids. Vital signs: BP 125/76 (BP Location: Left arm, Patient Position: Sitting, BP CUFF SIZE: Adult Medium) | Pulse 59 | Temp 36.7 C (98 F) (Temporal Artery) | Resp 18 | Ht 6' 1" (1.854 m) | Wt 151 lb 9.6 oz (68.8 kg) | BMI 20.00 kg/m Mental Status: well-kept and appears stated age, alert and oriented times three, cooperative during the exam, attention and concentration normal, systems planner and expression intact, fund of information normal, recent and remote memory intact, affect/mood normal and relaxed. Cranial nerves (vision, eye movement): EOM intact, equal reactive pupils, accommodation reflex present, full visual zepeda. Cranial nerves (face): normal mastication, facial sensation normal, facial motor normal, corneal reflex not done. Cranial nerves (taste, smell): taste intact by history, smell intact by history. Cranial nerve (hearing): normal conversational hearing, cannot hear finger rub on right side. Lateralizes to right on Rinne test. Cranial nerve (accessory): normal r/l sternomastoid bulk/tone/power. Shoulder shrug right and left normal. Cranial nerve (tongue): tongue bulk normal, tongue midline, palate centered. Peripheral motor: Arms: Strength, tone, power normal bilaterally. Legs: Strength, tone, power normal bilaterally. Reflexes: Arms: Triceps, biceps, brachioradialis 2+ and symmetrical Legs: Patelllar, ankle jerks 2 + and symmetrical. Toes downgoing bilaterally. Peripheral sensation: Arms: light touch intact, primary sharp touch normal, vibration symmetrical, proprioception normalbilaterally. Legs: light touch intact, primary sharp touch normal, vibration symmetrical, proprioception normal bilaterally. Coordination: Bilateral [id number] and finger tapping normal. Bilateral RAH motions symmetrical. Gait: gait normal, arm swing intact, romberg negative. Tandem walk normal, can balance on one foot or the other. HEENT: A/N, no oropharyngeal lesion present, JVD absent, thyromegaly absent, no lymphadenopathy present. Lungs: lungs clear, no wheezing, no rhonchi. Heart: CV RRR, no murmurs, carotid bruits absent. No murmurs on squatting. Peripheral vascular: no peripheral cyanosis, clubbing absent, no peripheral edema present, intact peripheral pulses, extremities warm to touch. Musculoskeletal: normal cervical ROM, normal lumbar range of motion, normal cervical torsional movements. No pain with spinal palpation. Labs: EKG (07/2019): "Marked sinus bradycardia at 43 bpm" ASSESSMENT AND RECOMMENDATIONS: ICD-10-CM ICD-9-CM 1. Syncope and collapse R55 780.2 2. Bradycardia by electrocardiogram R00.1 427.89 Syncope Patient reports episodes concerning for cardiogenic syncope which he differentiates from preexistingpanic attacks. History of sudden cardiac in the family. EKG from July 2019 reveal marked sinus bradycardia. - Holter monitor - F/u Cardiology If cardiology eval is not helpful, then we could consider studying cerebral vasculature, looking forevidence of vascular anomalies. Creation of the note was aided by utilizing a cut/paste operation of text from a Microsoft Word template created with [employer]. The text was dictated into the template via Dragon Naturally Speaking. Bj Gregg, MS4 10/01/2019 2:05 PM documented in this encounter Plan of Treatment Health Maintenance Due Date Last Done Comments VARICELLA VACCINES ( of - 06/29/1995 2-dose childhood series) DTaP,Tdap,and Td Vaccines ( - 2005 Tdap) INFLUENZA VACCINE (#1) 2019 Depression Screening 05/19/2020 05/20/2019 HPV VACCINES Aged Out No longer eligib le based on patient's age to complete this topic PNEUMOCOCCAL 0-64 YEARS COMBINED Aged Out No longer eligible based on SERIES patient's age to complete this topic documented as of this encounter Results Not on filedocumented in this encounter Visit Diagnoses Diagnosis Syncope and collapse - Primary Bradycardia by electrocardiogram Other specified cardiac dysrhythmias documented in this encounter Additional Health Concerns Infection Onset Date Last Indicated Resolved Time COVID-19 Rule Out 07/21/2019 07/21/2019 documented as of this encounter Insurance Payer Benefit Plan / Subscriber ID Effective Phone Address T ype [facility] xxxxxxxxx 2019-Pres [address] Medic aid HEALTH CHOICE - HEALTH CHOICE ent [id number] 1 MANAGED MEDICAID [place], [place] MEDICAID [phone] documented as of this encounter
--- OUTSIDE RECORDS SUMMARY | 2019-11-29 04:34 | XMS REPORT | Continuity of Care Document ---
:1995 Author Organization [facility] t Address [address] [place] [address] Care Team Providers Name Role Phone Filippo Rodríguez MD Attending Clinician Problems This patient has no known problems. Allergies, Adverse Reactions, Alerts This patient has no known allergies or adverse reactions. Medications This patient has no known medications. Procedures This patient has no known procedures. Encounters Start End Encounter Admission Attending Care Care Encounter Source Date/Time Date/Time Type Type Clinicians Facility Department ID 2019-10-01 2019-10-01 Office ELIJAH Rodríguez [id number] 13:03:53 15:48:49 Visit Mikhail Julian [id number] [place] [id number] Geoff [id number] [address] [address] Building Results This patient has no known results.
--- OUTSIDE RECORDS SUMMARY | 2019-11-29 04:34 | XMS REPORT | Summary of Care ---
:1995 Author Organization [facility] Address [address] [place] [address] Care Team Providers Name Role Phone BEN Pfeiffer Primary Care Provider Reason for Referral (Routine) Status Reason Specialty Diagnoses / Referred By Referred To Procedures Contact Contact New Request Otolaryngology Diagnoses Dizziness Hearing loss of right ear, unspecified hearing loss type Ankita, Procedures CONSULT/REFERRAL ENT Susie Galicia MD [address] [place] [address] [place] [phone] (Routine) Status Reason Specialty Diagnoses / Referred By Referred To Contact Procedures Contact New Request Diagnoses Dizziness Susie Luciano Howard Procedures CONSULT/REFERRAL NEUROLOGY MD Filippo Galicia MD [address] [place] [address] [place] [address]. [address] [place], [place] Phone: [phone] Fax: Reason for Visit Reason Comments Dizziness for years off and on Encounter Details Date Type Department Care Team Description 08/30/2019 Office Visit [facility] Pediatric Susie Luciano (Primary Dx); and Adult Primary MD Frida Hearing loss of right ear, unspecified h earing loss type; Care- [address] Hypoglycemia [address] [place] [address] Drive, [address] [address] [place], [place] [phone] [address] [phone] Allergies Active Allergy Reactions Severity Noted Date Comments Amoxicillin Unknown - See comments 01/17/2017 documented as of this encounter (statuses as of 09/01/2019) Medications Medication Sig Dispensed Refills Start Date [...] as of this encounter (statuses as of 09/01/2019) Active Problems Problem Noted Date Dizziness documented as of this encounter (statuses as of 09/01/2019) Social History Tobacco Use Types Packs/Day Years [...] Sign Reading Time Taken Comments Blood Pressure 132/80 08/30/2019 8:06 AM CDT Pulse 54 08/30/2019 8:05 AM CDT Temperature 36.4 C (97.6 F) 08/30/2019 8:05 AM CDT Respiratory Rate - - Oxygen Saturation 100% 08/30/2019 8:05 AM CDT Inhaled Oxygen Concentration - - Weight 67.6 kg (149 lb) 08/30/2019 8:05 AM CDT Height - - Body Mass Index 19.66 08/25/2019 9:06 AM CDT documented in this encounter Patient Instructions Patient InstructionsCoSusie hayes MD - 08/30/2019 8:00 AM CDTPrinciples for preventing hypoglycemia: Eat small balanced meals or snacks throughout the day (about every three hours). Choose a variety of healthy foods from at least three of the four food groups at each meal and two of the food groups at each snack. Limit foods and drinks high in sugar such as donuts, frozen desserts, fruit flavored drinks, and soft drinks. Avoid long stretches of time between meals. Choose foods that are high in soluble fiber and when eating starchy foods make sure that they have a low glycemic index. These types of foods can help keep blood glucose levels stable. Foods high in soluble fiber include: Oatmeal, oat bran and barley; Dried peas, beans and lentils; Vegetables and fruits (skin included). Aim for 5-10 grams of soluble fiber per day. Starchy foods low in glycemic index include: Oats, converted/parboiled rice, barley and bulgur; Breads made from stone ground flour and heavy mixed grain such as pumpernickel bread; Dried beans, peas and lentils; Most vegetables, fruits and low-fat milk products have a moderate or low glycemic index and can be included at each meal. When drinking alcohol, avoid mixing it with sugary drinks such as pop or juice and have it with food. Be cautious with the use of artificial sweeteners which can precipitate hypoglycemia in some people by raising insulin levels. Natural sweeteners such as yakon syrup and agave nectar could be considered as alternatives. documented in this encounter Progress Notes Susie Luciano MD - 08/30/2019 8:00 AM CDT Cc: Chief Complaint Patient presents with Dizziness for years off and on HPI Pako Fontaine is a 24 year old male patient of Isela Pfeiffer NP who presents with dizziness. Dizziness Quality: Room spinning (room gets dark) Severity: Moderate Duration: intermittently over the past 15 years. Timing: Intermittent Progression: Worsening Chronicity: Chronic Context comment: Has episodes of hypoglycemia-like feelings that resolve with eating Relieved by: Food (sometimes) Ineffective treatments: Fluids, being still and closing eyes Associated symptoms: headaches and hearing loss (decreased on right) Associated symptoms: no blood in stool, no chest pain, no diarrhea, no nausea, no palpitations, no shortness of breath, no syncope, no tinnitus, no vision changes, no vomiting and no weakness Associated symptoms comment: + confusion Risk factors: no anemia, no heart disease, no hx of stroke, no Meniere's disease, no multiple medications and no new medications Risk factors comment: H/o recurrent ear infections when he was young, says his right ear drum is "damaged", also reports poor hearing b/l R>L, has uncontrolled cerumen build-up w/ frequent impaction, hasn't jonny an ENT in recent times Allergies Pako is allergic to amoxicillin. Medications Outpatient Medications Prior to Visit Medication Sig Dispense Refill ibuprofen 600 mg tablet Take 1 tablet by mouth every 6 (six) hours as needed for Pain (scale 4-6). 20 tablet 0 methocarbamol 500 mg tablet Take 1 tablet by mouth 4 (four) times daily. 20 tablet 0 No facility-administered medications prior to visit. Histories Past Medical History: Diagnosis Date Anxiety Depression Past Surgical History: Procedure Laterality Date ADENOIDECTOMY APPENDECTOMY DE HAND/FINGER SURGERY UNLISTED R fracture repair TONSILLECTOMY [...] file Gets together: Not on file Attends spiritism service: Not on file Active member of [...] Lives at home with and 2 kids. Family History Family history unknown: Yes Review of Systems Constitutional: Negative. HENT: Positive for hearing loss (decreased on right). Negative for tinnitus. Eyes: Negative. Respiratory: Negative. Negative for shortness of breath. Cardiovascular: Negative. Negative for chest pain, palpitations and syncope. Gastrointestinal: Negative. Negative for blood in stool, diarrhea, nausea and vomiting. Genitourinary: Negative. Musculoskeletal: Negative. Skin: Negative. Neurological: Positive for dizziness and headaches. Negative for weakness. Psychiatric/Behavioral: Negative. Endocrine: Endocrine negative Vital Signs BP 132/80 | Pulse 54 | Temp 36.4 C (97.6 F) (Tympanic) | Wt 149 lb (67.6 kg) | SpO2 100% | BMI 19.66 kg/m Physical Exam Constitutional: He is oriented to person, place, and time. He appears well- developed and well-nourished. He has a sickly appearance. No distress. HENT: Head: Normocephalic and atraumatic. Nose: Nose normal. Mouth/Throat: Oropharynx is clear and moist and mucous membranes are normal. No posterior oropharyngeal erythema. B/l cerumen impaction Eyes: Pupils are equal, round, and reactive to light. Conjunctivae are normal. No scleral icterus. Neck: Neck supple. No JVD present. No thyromegaly present. Cardiovascular: Normal rate, regular rhythm, normal heart sounds and intact distal pulses. Exam reveals no gallop and no friction rub. No murmur heard. Pulmonary/Chest: Effort normal and breath sounds normal. No respiratory distress. He has no wheezes.He has no rhonchi. He has no rales. Abdominal: Soft. Bowel sounds are normal. He exhibits no distension and no mass. There is no tenderness. Musculoskeletal: He exhibits no edema. Lymphadenopathy: He has no cervical adenopathy. Neurological: He is alert and oriented to person, place, and time. He displays no tremor. He exhibits normal muscle tone. He displays no seizure activity. Coordination and gait normal. Grossly non-focal neuro exam Skin: Skin is warm and dry. No rash noted. No pallor. Psychiatric: He has a normal mood and affect. His behavior is normal. Nursing note and vitals reviewed. LABS: CBC CMP WBC (10*3/L) Date Value 08/25/2019 5.82 NA (mmol/L) Date Value 08/25/2019 139 RBC (10*6/L) Date Value 08/25/2019 5.07 K (mmol/L) Date Value 08/25/2019 4.0 PLT (10*3/L) Date Value 08/25/2019 206 CALCIUM (mg/dL) Date Value 08/25/2019 9.3 HGB (g/dL) Date Value 08/25/2019 15.4 CL (mmol/L) Date Value 08/25/2019 106 HCT (%) Date Value 08/25/2019 44.8 BUN (mg/dL) Date Value 08/25/2019 15 LIPID PANEL CREATININE (mg/dL) Date Value 08/25/2019 0.69 CHOL (mg/dL) Date Value 08/30/2019 191 GLUCOSE (mg/dL) Date Value 08/25/2019 87 LDL CHOL (mg/dL) Date Value 08/30/2019 115 CO2 TOTAL (mmol/L) Date Value 08/25/2019 28 HDL (mg/dL) Date Value 08/30/2019 51 ALBUMIN Date Value Ref Range Status 08/25/2019 4.5 3.5 - 5.0 g/dL Final TRIG (mg/dL) Date Value 08/30/2019 125 T PROTEIN Date Value Ref Range Status 08/25/2019 7.4 6.3 - 8.2 g/dL Final TSH TOTAL BILI Date Value Ref Range Status 08/25/2019 0.5 0.1 - 1.1 mg/dL Final TSH (mIU/L) Date Value 08/30/2019 0.42 (L) No components found for: BILIUNCOM BILI CONJ Date Value Ref Range Status 08/25/2019 0.0 0.0 - 0.3 mg/dL Final ALT(SGPT) Date Value Ref Range Status 01/17/2017 27 9 - 51 U/L Final ALTv Date Value Ref Range Status 08/25/2019 22 5 - 50 U/L Final AST(SGOT) Date Value Ref Range Status 08/25/2019 27 13 - 40 U/L Final ALK PHOS Date Value Ref Range Status 08/25/2019 50 34 - 122 U/L Final Urgent Care on 07/17/2019 Component Date Value SARS-CoV-2 PCR 07/17/2019 Not Detected Office Visit on 06/03/2019 Component Date Value SARS-CoV-2 PCR 06/03/2019 Not Detected LABS: CBC CMP WBC (10*3/L) Date Value 08/25/2019 5.82 NA (mmol/L) Date Value 08/25/2019 139 RBC (10*6/L) Date Value 08/25/2019 5.07 K (mmol/L) Date Value 08/25/2019 4.0 PLT (10*3/L) Date Value 08/25/2019 206 CALCIUM (mg/dL) Date Value 08/25/2019 9.3 HGB (g/dL) Date Value 08/25/2019 15.4 CL (mmol/L) Date Value 08/25/2019 106 HCT (%) Date Value 08/25/2019 44.8 BUN (mg/dL) Date Value 08/25/2019 15 LIPID PANEL CREATININE (mg/dL) Date Value 08/25/2019 0.69 CHOL (mg/dL) Date Value 08/30/2019 191 GLUCOSE (mg/dL) Date Value 08/25/2019 87 LDL CHOL (mg/dL) Date Value 08/30/2019 115 CO2 TOTAL (mmol/L) Date Value 08/25/2019 28 HDL (mg/dL) Date Value 08/30/2019 51 ALBUMIN Date Value Ref Range Status 08/25/2019 4.5 3.5 - 5.0 g/dL Final TRIG (mg/dL) Date Value 08/30/2019 125 T PROTEIN Date Value Ref Range Status 08/25/2019 7.4 6.3 - 8.2 g/dL Final TSH TOTAL BILI Date Value Ref Range Status 08/25/2019 0.5 0.1 - 1.1 mg/dL Final TSH (mIU/L) Date Value 08/30/2019 0.42 (L) No components found for: BILIUNCOM BILI CONJ Date Value Ref Range Status 08/25/2019 0.0 0.0 - 0.3 mg/dL Final ALT(SGPT) Date Value Ref Range Status 01/17/2017 27 9 - 51 U/L Final ALTv Date Value Ref Range Status 08/25/2019 22 5 - 50 U/L Final AST(SGOT) Date Value Ref Range Status 08/25/2019 27 13 - 40 U/L Final ALK PHOS Date Value Ref Range Status 08/25/2019 50 34 - 122 U/L Final Assessment/Plan Diagnoses and all orders for this visit: Dizziness, Hearing loss of right ear, unspecified hearing loss type The cause of the patient's dizziness is unclear but it is likely connected to his ear complaints. The patient is not dizzy currently and he appears hemodynamically stable, so the patient was not referred to the ER. A lab work- up was recommended as noted. Referral to ENT and Neurology for further renee luation of his chronic symptoms. A trial of meclizine was prescribed. Strong ER precautions given for persistent dizziness, focal weakness, syncope, persistent palpitations, etc. - meclizine 12.5 mg tablet; Take 1-2 tablets by mouth 3 (three) times daily as needed for Dizziness. - GLYCOSYLATED HEMOGLOBIN (A1C); Standing - LIPID PANEL (40150)(TOTAL CHOLESTEROL, TRIGLYCERIDES, HDL); Standing - THYROID STIMULATING HORMONE; Standing - FREE T4; Standing - INSULIN, LEVEL; Standing - CONSULT/REFERRAL NEUROLOGY - CONSULT/REFERRAL ENT Hypoglycemia A lab evaluation was undertaken as noted. The patient was advised to consider consultation with a registered dietitian/crepe box tender for help with choosing and adapting recipes to add low glycemic index foods in his meal plan. The patient was offered referral to an Instrument Assembly Supervisor to further evaluateand manage his hypoglycemia. We discussed the following principles for preventing hypoglycemia: Eat small balanced meals or snacks throughout the day (about every three hours). Choose a variety of healthy foods from at least three of the four food groups at each meal and two of the food groups at each snack. Limit foods and drinks high in sugar such as donuts, frozen desserts, fruit flavored drinks, and soft drinks. Avoid long stretches of time between meals. Choose foods that are high in soluble fiber and when eating starchy foods make sure that they have a low glycemic index. These types of foods can help keep blood glucose levels stable. Foods high in soluble fiber include: Oatmeal, oat bran and barley; Dried peas, beans and lentils; Vegetables and fruits (skin included). Aim for 5-10 grams of soluble fiber per day. Starchy foods low in glycemic index include: Oats, converted/parboiled rice, barley and bulgur; Breads made from stone ground flour and heavy mixed grain such as pumpernickel bread; Dried beans, peas and lentils; Most vegetables, fruits and low-fat milk products have a moderate or low glycemic index and can be included at each meal. When drinking alcohol, avoid mixing it with sugary drinks such as pop or juice and have it with food. Be cautious with the use of artificial sweeteners which can precipitate hypoglycemia in some people by raising insulin levels. Natural sweeteners such as yakon syrup, monk fruit extract, Stevia, and agave nectar could be considered as alternatives. - GLYCOSYLATED HEMOGLOBIN (A1C); Standing - INSULIN, LEVEL; Standing Plan of care, desired health behaviors, goals, Ddx, and any prescribed medications were discussed with the patient. This visit did not involve counseling and coordination that comprised more than 50% of the visit time. Education resources and self-management tools were provided and reviewed with the AVS. Patient/guardian/family verbalized understanding and agrees to the plan of care. Barriers tocare: None. Ability to manage care: Good. Advanced care planning (living will) information was not given/offered to the patient to review for discussion at a future visit. If applicable, the [facility] database was accessed to review any controlled substance prescription claims data. If the patient is taking prescribed medications, the [employer] prescription claims data in [employer] was reviewed to assess patient compliance with the medication treatment plan. COVID-19 precautions given including frequent handwashing, social distancing, cleaning and disinfecting, indications for testing, etc. Follow-up: Return if symptoms worsen or fail to improve. Return for routine care as scheduled or previously advised by PCP. documented in this encounter Plan of Treatment Date Type Specialty Care Team Description 09/10/2019 Office Visit Gastroenterology Joslyn Membreno MD [address] [place], [place] [phone] Health Maintenance Due Date Last Done Comments VARICELLA VACCINES ( - 06/29/1995 2-dose childhood series) DTaP,Tdap,and Td Vaccines ( - 2005 Tdap) INFLUENZA VACCINE (Season Ended) 2019 Depression Screening 05/19/2020 05/20/2019 HPV VACCINES Aged Out No longer eligib le based on patient's age to complete this topic PNEUMOCOCCAL 0-64 YEARS COMBINED Aged Out No longer eligible based on SERIES patient's age to complete this topic documented as of this encounter Results INSULIN, LEVEL (08/30/2019 9:05 AM CDT) Pathologist Sig nature Insulin 5.6 1.9 - 23.0 uIU/mL [facility] S Specimen Blood Performing Organization Address [facility] Phone Number [facility] CLIA: [id number], [address] [place], [place] [address] [facility] FREE T4 (08/30/2019 9:05 AM CDT) Pathologist Sig nature FREE T4 0.98 0.78 - 2.20 ng/dL [facility] Specimen Blood Performing Organization Address [facility] Phone Number [facility] CLIA: [id number], [address] [place] [address] THYROID STIMULATING HORMONE (08/30/2019 9:05 AM CDT) Pathologist Sig nature TSH 0.42 (L) 0.45 - 4.70 mIU/L [facility] Specimen Blood Performing Organization Address [facility] Phone Number [facility] CLIA: [id number], [address] [place] [address] LIPID PANEL (52767)(TOTAL CHOLESTEROL, TRIGLYCERIDES, HDL) (08/30/2019 9:05 AM CDT) Pathologist Sig nature CHOL 191 120 - 200 mg/dL [facility] HDL 51 >40 mg/dL [facility] HDLC RATIO 3.7 <=5.0 [facility] TRIG 125 30 - 170 mg/dL [facility] LDL CHOL 115 <=160 mg/dL [facility] VLDL 25 5 - 60 mg/dL [facility] Specimen Blood Performing Organization Address [facility]/Zipcode Phone Number [facility] CLIA: [id number], [address] [place], [place] [address] GLYCOSYLATED HEMOGLOBIN (A1C) (08/30/2019 9:05 AM CDT) Pathologist Sig nature HGB A1C 4.8 4.0 - 6.0 % NGSP [facility] Specimen Blood Narrative Performed At %A1C (NGSP) Interpretation (ADA) [facility] 4.8-5.6 Normal or (Non-Diabetic Ra nge) 5.7-6.4 Increased Risk (Pre-Diabet ic) >6.5 Diabetes Indicated Performing Organization Address City/State/Zipcode Phone Number [facility] CLIA: [id number], [address] [place], [place] [address] documented in this encounter Visit Diagnoses Diagnosis Dizziness - Primary Dizziness and giddiness Hearing loss of right ear, unspecified h earing loss type Hypoglycemia Hypoglycemia, unspecified documented in this encounter Additional Health Concerns Infection Onset Date Last Indicated Resolved Time COVID-19 Rule Out 07/21/2019 07/21/2019 documented as of this encounter Insurance Payer Benefit Plan / Subscriber ID Effective Phone Address T e [employer] [facility] xxxxxxxxx 2019-Pres [address] Medic aid HEALTH CHOICE - HEALTH CHOICE ent [id number] MANAGED MEDICAID [place], [place] [phone] documented as of this encounter
--- OUTSIDE RECORDS SUMMARY | 2019-11-29 04:34 | XMS REPORT | Summary of Care ---
:1995 Author Organization [facility] Address [address] [place] [address] Care Team Providers Name Role Phone BEN Pfeiffer Primary Care Provider Reason for Visit Reason Comments Orders Encounter Details Date Type Department Care Team Description 09/04/2019 Case Management [facility] Pediatric Tato Luciano, Orders and Adult Primary Care- [address] [place], [place] [address] [address] [place] [address] [phone] Allergies Active Allergy Reactions Severity Noted Date Comments Amoxicillin Unknown - See comments 01/17/2017 documented as of this encounter (statuses as of 09/04/2019) Medications Medication Sig Dispensed Refills Start Date [...] as of this encounter (statuses as of 09/04/2019) Active Problems Problem Noted Date Dizziness documented as of this encounter (statuses as of 09/04/2019) Social History Tobacco Use Types Packs/Day Years [...] Signs Not on filedocumented in this encounter Plan of Treatment Date Type Specialty Care Team Description 09/10/2019 Office Visit Gastroenterology Joslyn Membreno MD [address] [place], [place] [phone] Name Type Priority Associated Diagnoses Order S chedule THYROID STIMULATING HORMONE LAB Routine Abnormal TSH Expected: 10/16/2019, Expires: 2019 Health Maintenance Due Date Last Done Comments [...] filedocumented in this encounter Visit Diagnoses Diagnosis Abnormal TSH - Primary Other abnormal clinical finding documented in this encounter Additional Health Concerns Infection Onset Date Last Indicated Resolved Time COVID-19 Rule Out 07/21/2019 07/21/2019 documented as of this encounter Insurance Payer Benefit Plan / Subscriber ID Effective Phone Address [facility] xxxxxxxxx 2019-Pres [address] Medic aid HEALTH CHOICE - HEALTH CHOICE ent [id number] MANAGED MEDICAID [place], [place] [phone] documented as of this encounter
--- OUTSIDE RECORDS SUMMARY | 2019-11-29 04:34 | XMS REPORT | Summary of Care ---
:1995 Author Organization [facility] Address [address] [place] [address] Care Team Providers Name Role Phone Kentrell BEN Primary Care Provider Reason for Visit Reason Comments New Patient Establish Care Dizziness Confusion (Routine) Status Reason Specialty Diagnoses / Referred By Contact Refe rred To Contact Procedures Closed Neurology Diagnoses Dizziness [place], [place] Mikhail Rodríguez, Procedures CONSULT/REFERRAL NEUROLOGY MD KIANNA Galicia [address] [facility] [place] [phone] Phone: Fax: Encounter Details Date Type Department Care Team Description 10/01/2019 Office Visit [facility] Mikhail Rodríguez Syncope and collapse (Primary Dx); Neurology-Iesha Barkley MD Bradycardia by electrocardiogram [address], [address] [facility] [place] [phone] Allergies Active Allergy Reactions Severity Noted [...] evaluation and management service. Mikhail Rodríguez MD Supply Chain Intern Neurology HISTORY OF PRESENT ILLNESS: Pako Fontaine [...] Surgical History: Procedure Laterality Date ADENOIDECTOMY APPENDECTOMY [place] HAND/FINGER SURGERY UNLISTED R fracture repair TONSILLECTOMY [...] file Gets together: Not on file Attends nondenominational service: Not on file Active member of [...] during the exam, attention and concentration normal, reception centre manager and expression intact, fund of information normal, [...] vibration symmetrical, proprioception normal bilaterally. Coordination: Bilateral [id number] and finger tapping normal. Bilateral RAH motions [...] from a Microsoft Word template created with [employer]. The text was dictated into the template [...] Subscriber ID Effective Phone Address T ype [facility] xxxxxxxxx 2019-Pres [address] Medic aid HEALTH CHOICE - HEALTH CHOICE ent [id number] MANAGED MEDICAID [place], [place] [phone] documented as of this encounter
--- OUTSIDE RECORDS SUMMARY | 2019-11-29 04:34 | XMS REPORT | Summary of Care ---
:1995 Author Organization [facility] Address [address] [place] [address] Care Team Providers Name Role Phone BEN Pfeiffer Primary Care Provider Reason for Referral (Routine) Status Reason Specialty Diagnoses / Referred By Referred To Procedures Contact Contact New Request Otolaryngology Diagnoses Dizziness Hearing loss of right ear, unspecified hearing loss type Ankita, Procedures CONSULT/REFERRAL ENT Susie Galicia MD [address] [place] [address] [place] [phone] (Routine) Status Reason Specialty Diagnoses / Referred By Referred To Contact Procedures Contact New Request Diagnoses Dizziness Susie Luciano Howard Procedures CONSULT/REFERRAL NEUROLOGY MD Filippo Galicia MD [address] [place] [address] [place] [address]. [address] [place], [place] Phone: [phone] Fax: Reason for Visit Reason Comments Dizziness for years off and on Encounter Details Date Type Department Care Team Description 08/30/2019 Office Visit [facility] Pediatric Susie Luciano (Primary Dx); and Adult Primary MD Frida Hearing loss of right ear, unspecified h earing loss type; Care- [address] Hypoglycemia [address] [place] [address] Drive, [address] [address] [place], [place] [phone] [phone] Allergies Active Allergy Reactions Severity Noted Date [...] Surgical History: Procedure Laterality Date ADENOIDECTOMY APPENDECTOMY GA HAND/FINGER SURGERY UNLISTED R fracture repair TONSILLECTOMY [...] file Gets together: Not on file Attends orthodoxy service: Not on file Active member of [...] GLYCOSYLATED HEMOGLOBIN (A1C); Standing - LIPID PANEL (84641)(TOTAL CHOLESTEROL, TRIGLYCERIDES, HDL); Standing - THYROID STIMULATING HORMONE; Standing - FREE T4; Standing - INSULIN, LEVEL; Standing - CONSULT/REFERRAL NEUROLOGY - CONSULT/REFERRAL ENT Hypoglycemia A lab evaluation was undertaken as noted. The patient was advised to consider consultation with a registered dietitian/sas architect for help with choosing and adapting recipes to add low glycemic index foods in his meal plan. The patient was offered referral to an Supervisor Lead Refinery to further evaluateand manage his hypoglycemia. We [...] at a future visit. If applicable, the [facility] database was accessed to review any controlled substance prescription claims data. If the patient is taking prescribed medications, the [employer] prescription claims data in [employer] was reviewed to assess patient compliance with [...] Visit Gastroenterology Joslyn Membreno MD [address] [place], [place] [phone] Health Maintenance Due Date [...] nature Insulin 5.6 1.9 - 23.0 uIU/mL [facility] S Specimen Blood Performing Organization Address [facility] [place] [facility] CLIA: [id number], [address] [place], [place] [address] [facility] FREE T4 (08/30/2019 9:05 AM CDT) Pathologist Sig nature FREE T4 0.98 0.78 - 2.20 ng/dL [facility] Specimen Blood Performing Organization Address [facility] [place] Phone Number [facility] CLIA: [id number], [address] [place] [address] THYROID STIMULATING HORMONE (08/30/2019 9:05 AM CDT) Pathologist Sig nature TSH 0.42 (L) 0.45 - 4.70 mIU/L [facility] Specimen Blood Performing Organization Address [facility] [place] Phone Number [facility] CLIA: [id number], [address] [place] [address] LIPID PANEL (72407)(TOTAL CHOLESTEROL, TRIGLYCERIDES, HDL) (08/30/2019 9:05 AM CDT) Pathologist Sig nature CHOL 191 120 - 200 mg/dL [facility] HDL 51 >40 mg/dL [facility] HDLC RATIO 3.7 <=5.0 [facility] TRIG 125 30 - 170 mg/dL [facility] LDL CHOL 115 <=160 mg/dL [facility] VLDL 25 5 - 60 mg/dL [facility] Specimen Blood Performing Organization Address [facility]/Zipcode Phone Number [facility] CLIA: [id number], [address] [place], [place] [address] GLYCOSYLATED HEMOGLOBIN (A1C) (08/30/2019 9:05 AM CDT) Pathologist Sig nature HGB A1C 4.8 4.0 - 6.0 % [facility] Specimen Blood Narrative Performed At %A1C (NGSP) Interpretation (ADA) [facility] 4.8-5.6 Normal or (Non-Diabetic Ra nge) 5.7-6.4 Increased Risk (Pre-Diabet ic) >6.5 Diabetes Indicated Performing Organization Address City/State/Zipcode Phone Number [facility] CLIA: [id number], [address] [place], [place] [address] documented [...] ID Effective Phone Address T e Group [facility] xxxxxxxxx 2019-Pres [address] Medic aid [facility] - HEALTH CHOICE ent [id number] MANAGED MEDICAID [place], [place] [phone] documented as of this encounter
--- NOTE | 2019-11-29 06:15 | ER ---
Nurse's Notes [facility] Name: Pako Fontaine Age: 24 yrs Sex: Male : 1995 Arrival Date: 11/29/2019 Time: 04:35 Bed 16 Private MD: Diagnosis: Contusion right hand Presentation: 11/28 04:56 Chief complaint: Patient states: Hx of broken right hand, Pt was fixing an engine wh yesterday when he felt something snapped. Pt C/O right hand pain since then. Coronavirus screen: Client denies travel out of the [place] in the last 14 days. At this time, the client does not indicate any symptoms associated with coronavirus-19. Ebola Screen: Patient negative for fever greater than or equal to 101.5 degrees Fahrenheit, and additional compatible Ebola Virus Disease symptoms Patient denies exposure to infectious person. Initial Sepsis Screen: Does the patient meet any 2 criteria? No. Patient's initial sepsis screen is negative. Does the patient have a suspected source of infection? No. Patient's initial sepsis screen is negative. Risk Assessment: Do you want to hurt yourself or someone else? Patient reports no desire to harm self or others. Onset of symptoms was November 29, 2019. 04:56 Method Of Arrival: Ambulatory 04:56 Acuity: [place] 4 Triage Assessment: 05:01 Injury Description:. Historical: - Allergies: 05:00 Amoxicillin; - Home Meds: 05:00 None [Active]; - PMHx: 05:00 None; - PSHx: 05:00 None; - Immunization history:: Adult Immunizations up to date. - Social history:: Smoking status: Patient reports the use of cigarette tobacco products, denies chronic smoking, but will smoke occasionally. Screenin:00 Abuse screen: Denies threats or abuse. Denies injuries from another. Nutritional screening: No deficits noted. Tuberculosis screening: No symptoms or risk factors identified. Fall Risk None identified. Assessment: 05:00 General: Appears in no apparent distress. Behavior is calm, cooperative, appropriate for age. Pain: Complains of pain in right hand. Neuro: Level of Consciousness is awake, alert, obeys commands, Oriented to person, place, time, situation, Appropriate for age. Cardiovascular: Capillary refill < 3 seconds. Respiratory: Airway is patent Respiratory effort is even, unlabored, Respiratory pattern is regular, symmetrical. GI: Abdomen is flat, non-distended. : No signs and/or symptoms were reported regarding the genitourinary system. EENT: No signs and/or symptoms were reported regarding the EENT system. Derm: Skin is intact, is healthy with good turgor, Skin is pink, warm \T\ dry. normal. Musculoskeletal: Circulation, motion, and sensation intact. Vital Signs: 04:56 BP 128 / 68; Pulse 63; Resp 18; Temp 98.3; Pulse Ox 100% ; Weight 70.31 kg; Height 6 wh ft. 1 in. (185.42 cm); Pain 4/10; 06:00 BP 116 / 79; Pulse 60; Resp 18; Pulse Ox 99% ; wh 04:56 Body Mass Index 20.45 (70.31 kg, 185.42 cm) ED Course: 04:35 Patient arrived in ED. cl3 04:45 Zack Rodriguez RN is Primary Nurse. rr5 04:45 Rufus Merrill, RN is Primary Nurse. jb4 04:56 Leila Link is Primary Nurse. 05:00 Triage completed. 05:00 Patient has correct armband on for positive identification. Bed in low position. Call light in reach. Side rails up X 1. NIBP on. 05:01 Arm band placed on right wrist. 05:26 David Benoit MD is Attending Physician. pkl 05:34 XRAY Hand RIGHT 3 View In Process Unspecified. EDMS 06:22 No provider procedures requiring assistance completed. Patient did not have IV access during this emergency room visit. Administered Medications: No medications were administered Outcome: 06:14 Discharge ordered by . pkgregorio 06:22 Discharged to home ambulatory. 06:22 Condition: stable 06:22 Discharge instructions given to patient, Instructed on discharge instructions, follow up and referral plans. POC Demonstrated understanding of instructions, follow-up care, POC 06:23 Patient left the ED. Signatures: Dispatcher [employer] EDMS David Benoit MD MD pkl Bryson, James RN RN jbLeila Calderón Zack Rodriguez, RN RN rr5 Jeniffer Salcedo cl3
--- NOTE | 2019-11-29 06:15 | EDPHYS ---
Physician Documentation [facility] Name: Pako Fontaine Age: 24 yrs Sex: Male : 1995 Arrival Date: 11/29/2019 Time: 04:35 Bed 16 Private MD: ED Physician David Benoit HPI: 11/28 05:49 This 24 yrs old Male presents to ER via Ambulatory with complaints of Hand pkl Injury. 05:49 The patient or guardian reports a contusion. The complaints affect the right hand pkl diffusely. Context: resulted from fixing engine and felt something snapped in the hand. Onset: The symptoms/episode began/occurred yesterday. Historical: - Allergies: 05:00 Amoxicillin; wh - Home Meds: 05:00 None [Active]; wh - PMHx: 05:00 None; wh - PSHx: 05:00 None; wh - Immunization history:: Adult Immunizations up to date. - Social history:: Smoking status: Patient reports the use of cigarette tobacco products, denies chronic smoking, but will smoke occasionally. ROS: 05:49 Eyes: Negative for injury, pain, redness, and discharge, ENT: Negative for injury, pkl pain, and discharge, Neck: Negative for injury, pain, and swelling, Cardiovascular: Negative for chest pain, palpitations, and edema, Respiratory: Negative for shortness of breath, cough, wheezing, and pleuritic chest pain, Abdomen/GI: Negative for abdominal pain, nausea, vomiting, diarrhea, and constipation, Back: Negative for injury and pain, : Negative for injury, bleeding, discharge, and swelling, Skin: Negative for injury, rash, and discoloration, Neuro: Negative for headache, weakness, numbness, tingling, and seizure. 05:49 MS/extremity: Positive for contusion, pain, of the right hand. Exam: 05:49 Head/Face: Normocephalic, atraumatic. Eyes: Pupils equal round and reactive to light, pkl extra-ocular motions intact. Lids and lashes normal. Conjunctiva and sclera are non-icteric and not injected. Cornea within normal limits. Periorbital areas with no swelling, redness, or edema. ENT: Nares patent. No nasal discharge, no septal abnormalities noted. Tympanic membranes are normal and external auditory canals are clear. Oropharynx with no redness, swelling, or masses, exudates, or evidence of obstruction, uvula midline. Mucous membranes moist. Neck: Trachea midline, no thyromegaly or masses palpated, and no cervical lymphadenopathy. Supple, full range of motion without nuchal rigidity, or vertebral point tenderness. No Meningismus. Chest/axilla: Normal chest wall appearance and motion. Nontender with no deformity. No lesions are appreciated. Cardiovascular: Regular rate and rhythm with a normal S1 and S2. No gallops, murmurs, or rubs. Normal PMI, no JVD. No pulse deficits. Respiratory: Lungs have equal breath sounds bilaterally, clear to auscultation and percussion. No rales, rhonchi or wheezes noted. No increased work of breathing, no retractions or nasal flaring. Abdomen/GI: Soft, non-tender, with normal bowel sounds. No distension or tympany. No guarding or rebound. No evidence of tenderness throughout. Back: No spinal tenderness. No costovertebral tenderness. Full range of motion. Skin: Warm, dry with normal turgor. Normal color with no rashes, no lesions, and no evidence of cellulitis. Neuro: Awake and alert, GCS 15, oriented to person, place, time, and situation. Cranial nerves II-XII grossly intact. Motor strength 5/5 in all extremities. Sensory grossly intact. Cerebellar exam normal. Normal gait. 05:49 Musculoskeletal/extremity: Extremities: grossly normal except: noted in the right hand: pain, swelling. Vital Signs: 04:56 BP 128 / 68; Pulse 63; Resp 18; Temp 98.3; Pulse Ox 100% ; Weight 70.31 kg; Height 6 wh ft. 1 in. (185.42 cm); Pain 4/10; 06:00 BP 116 / 79; Pulse 60; Resp 18; Pulse Ox 99% ; wh 04:56 Body Mass Index 20.45 (70.31 kg, 185.42 cm) MDM: 05:26 Patient medically screened. pkl 06:13 Data reviewed: vital signs, nurses notes, radiologic studies, plain films. pkl 11/28 05:10 Order name: XRAY Hand RIGHT 3 View wh Administered Medications: No medications were administered Disposition: 06:13 Co-signature as Attending Physician, David Benoit MD. pkl Disposition: 11/29/19 06:14 Discharged to Home. Impression: Contusion right hand. - Condition is Stable. - Medication Reconciliation Form, Thank You Letter, Antibiotic Education, Prescription Opioid Use form. - Follow up: Private Physician; When: 2 - 3 days; Reason: Re-evaluation by your physician. - Problem is new. - Symptoms have improved. Signatures: Dispatcher [employer] EDDavid Gilliland MD MD pkLeila Davison Corrections: (The following items were deleted from the chart) 06:23 06:14 11/29/2019 06:14 Discharged to Home. Impression: Contusion right hand. Condition wh is Stable. Forms are Medication Reconciliation Form, Thank You Letter, Antibiotic Education, Prescription Opioid Use. Follow up: Private Physician; When: 2 - 3 days; Reason: Re-evaluation by your physician. Problem is new. Symptoms have improved. pkl
--- NOTE | 2019-11-29 09:35 | RAD REPORT ---
EXAM DESCRIPTION: RAD - Hand Right 3 View - 11/29/2019 5:33 am CLINICAL HISTORY: PAIN, trauma, site of pain not further detailed in history COMPARISON: Hand Right 3 View dated 04/28/2012None. FINDINGS: No fracture is identified. There is no dislocation or periosteal reaction noted. The prior fourth metacarpal fracture appears well-healed. No foreign body or significant soft tissue abnormali ty. IMPRESSION: Negative right hand examination.
[2019-11-29 16:28] VITALS: TEMP 98.3
[2019-11-29 16:33] VITALS: BP 116/79; O2SAT 99
== END 2019-11-29 06:23 | disposition home or self-care (01) ==
LOC: ER 04:32
DX: S60.221A Contusion of right hand, initial encounter (principal); X58.XXXA Exposure to other specified factors, initial encounter; Y93.89 Activity, other specified; Y92.9 Unspecified place or not applicable; F17.210 Nicotine dependence, cigarettes, uncomplicated; Z88.1 Allergy status to other antibiotic agents
CPT/HCPCS: 99283

== ENCOUNTER 2021-08-29 10:48 | Emergency (ER) | payer SELFPAY ==
--- OUTSIDE RECORDS SUMMARY | 2021-08-29 10:51 | XMS REPORT | Continuity of Care Document ---
:1995 Author Organization [facility] t Address [address] [place] [address] [address]. [address] [place] [address] Care Team Providers Name Role Phone Kentrell GAS COMBUSTION ENGINEER Primary Care Physician Only, Db Test Attending Clinician Unavailable Guido GAS COMBUSTION ENGINEER Attending Clinician Anne HUTCHISON, Gene Attending Clinician Payers Payer Name Policy Type Policy Number Effective Date Expiration Date S ource Problems Condition Condition Condition Status Onset Resolution Last Treating Co mments Source Name Details Category Date Date Treatment Clinician Date 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 U nivers a by a by 03-16 [place] electro[place] [address] [place] [address] Dizziness Dizziness Disease Active Uni vers ity of [facility] Allergies, Adverse Reactions, Alerts Allergy Allergy Status Severity Reaction(s) Onset Inactive Treating Comm ents Source Name Type Date Date Clinician Amoxicil Propensi Active Unknown - 2016-03 Uni vers dali ty to See comments 03-19 ity of adverse 00:00: [place] reaction [address] [place] [address] s [place] Social History Social Habit Start Date Stop Date Quantity Comments Source Exposure to Not sure University SARS-CoV-2 [facility] (event) [place] Alcohol intake 2020-08-09 2020-08-09 Ex-drinker University 00:00:00 00:00:00 (finding) [facility] Tobacco use and 2019-07-17 2019-07-17 Never used Universit y of exposure 00:00:00 00:00:00 [facility] History of 2019-06-17 Cigarette Smoker Universi ty of tobacco use 00:00:00 [facility] Sex Assigned [birth year] Universit y of 00:00:00 00:00:00 [facility] Smoking Status Start Date Stop Date Source Former smoker 2019-07-17 00:00:00 2019-07-17 00:00:00 [facility] Medications Ordered Filled Start Stop Current Ordering Indication Dosage Frequency Signature Comments Components Source Medication Medication Date Date Medication? Clinician (SIG) Name Name ondansetron Yes [id number] 4mg Take 1 Univers 4 mg 3-13 tablet by ity of disintegrat 00:00: mouth [place] ing tablet 00 every 4 Medica l (four) Branch hours as needed for Nausea and Vomiting (N/V). ibuprofen Yes [id number] 800mg Take 1 U nivers 800 mg 3-13 tablet by ity of tablet 00:00: mouth [place] 00 every 8 Medical (eight) Branch hours. Procedures This patient has no known procedures. Encounters Start End Encounter Admission Attending Care Care Encounter Source Date/Time Date/Time Type Type Clinicians Facility Department ID 2021-03-21 2021-03-21 Laboratory Only, Ang Db Test [facility] [id number] Univers 11:15:00 11:26:[address] [facility] [id number] [facility] [id number] Yvan as [place]?BLEA [id number] Md rosa [address] MEDICAL OFFICE BUILDING 2019-10-01 2019-10-01 Office Anne [facility] [id number] 13:03:53 15:48:49 Visit Mikhail Maharajton [id number] [place] [id number] Professio [phone] [facility] 092 [facility] Results This patient has no known results.
--- NOTE | 2021-08-29 12:01 | RAD REPORT ---
EXAM DESCRIPTION: RAD - Shoulder Right 2 View - 08/29/2021 11:44 am CLINICAL HISTORY: PAIN COMPARISON: <Comparisons> FINDINGS/IMPRESSION: No acute fracture. No malalignment. No significant focal degenerative changes.
--- NOTE | 2021-08-29 12:26 | EDPHYS ---
Physician Documentation [facility] Name: Paok Fontaine Age: 26 yrs Sex: Male : 1995 Arrival Date: 08/29/2021 Time: 10:55 Bed 13 Private MD: ED Physician Jose Hadley HPI: 08/29 12:23 This 26 yrs old Male presents to ER via Ambulatory with complaints of Shoulder Pain. ma2 12:23 Associated signs and symptoms: Pertinent negatives: dyspnea, shortness of breath, ma2 tingling. Severity of symptoms: At their worst the symptoms were moderate, in the emergency department the symptoms are unchanged. 6-year-old male, thinks he sprained his right shoulder while walking, by having lifting on , presents with pain on the right side only when he abducts the shoulder a certain point pain starts with abduction at 90 degree and above. Otherwise no trauma no pain at this time. Historical: - Allergies: 11:00 Amoxicillin; ll1 - PMHx: 11:00 None; ll1 - PSHx: 11:00 None; ll1 - Immunization history:: Client reports having NOT received the Covid vaccine. - Social history:: Smoking status: Reported history of juuling and/or vaping. - Family history:: not pertinent. ROS: 12:23 Constitutional: Negative for fever, chills, and weight loss. ma2 12:23 All other systems are negative. Exam: 12:23 Constitutional: This is a well developed, well nourished patient who is awake, alert, ma2 and in no acute distress. Cardiovascular: Regular rate and rhythm with a normal S1 and S2. No gallops, murmurs, or rubs. Normal PMI, no JVD. No pulse deficits. Respiratory: Lungs have equal breath sounds bilaterally, clear to auscultation and percussion. No rales, rhonchi or wheezes noted. No increased work of breathing, no retractions or nasal flaring. Abdomen/GI: Soft, non-tender, with normal bowel sounds. No distension or tympany. No guarding or rebound. No evidence of tenderness throughout. Skin: Warm, dry with normal turgor. Normal color with no rashes, no lesions, and no evidence of cellulitis. MS/ Extremity: Pulses equal, no cyanosis. Neurovascular intact. Full, normal range of motion. Neuro: Awake and alert, GCS 15, oriented to person, place, time, and situation. Cranial nerves II-XII grossly intact. Motor strength 5/5 in all extremities. Sensory grossly intact. Cerebellar exam normal. Normal gait. 12:23 Musculoskeletal/extremity: Extremities: Right shoulder exam unremarkable with full range of motion no signs of sepsis joint. Vital Signs: 11:00 BP 152 / 85; Pulse 51; Resp 16; Temp 98.5; Pulse Ox 98% on R/A; Weight 74.84 kg; Height ll1 6 ft. 0 in. (182.88 cm); Pain 0/10; 13:08 BP 139 / 78; Pulse 54; Resp 18; Temp 98.2; Pulse Ox 99% on R/A; ph 11:00 Body Mass Index 22.38 (74.84 kg, 182.88 cm) ll1 MDM: 11:35 Patient medically screened. ma2 12:23 Differential diagnosis: humeral head fracture, glenoid fracture, DJD, tendonitis. Data ma2 reviewed: vital signs, nurses notes. Counseling: I had a detailed discussion with the patient and/or guardian regarding: the historical points, exam findings, and any diagnostic results supporting the discharge/admit diagnosis, the presence of at least one elevated blood pressure reading (>120/80) during this emergency department visit, the need for outpatient follow up. Response to treatment: the patient's symptoms have resolved after treatment. 08/29 11:35 Order name: XRAY Shoulder RIGHT 2 view; Complete Time: 12:26 ma2 Administered Medications: No medications were administered Disposition Summary: 08/29/21 12:25 Discharge Ordered Location: Home ma2 Condition: Stable ma2 Diagnosis - Pain in right shoulder ma2 Followup: ma2 - With: Private Physician - When: Tomorrow - Reason: Recheck today's complaints, Continuance of care Discharge Instructions: - Discharge Summary Sheet ma2 - Musculoskeletal Pain ma2 Forms: - Medication Reconciliation Form ma2 - Work release form ph - Thank You Letter ma2 - Antibiotic Education ma2 - Prescription Opioid Use ma2 Prescriptions: - Cyclobenzaprine 10 mg Oral Tablet - take 1 tablet by ORAL route every 8 hours As needed; 30 tablet; Refills: 0, ma2 Product Selection Permitted - Diclofenac Sodium 75 mg Oral Tablet Sustained Release - take 1 tablet by ORAL route 2 times per day; 30 tablet; Refills: 0, Product ma2 Selection Permitted Signatures: Dispatcher [employer] Jose Martinez MD MD ma2 Jesus Salcedo RN RN 1
--- NOTE | 2021-08-29 12:26 | ER ---
Nurse's Notes [facility] Name: Pako Fontaine Age: 26 yrs Sex: Male : 1995 Arrival Date: 08/29/2021 Time: 10:55 Bed 13 Private MD: Diagnosis: Pain in right shoulder Presentation: 08/29 11:00 Chief complaint: Patient states: R shoulder pain with certain movements since . ll1 No trauma, but repeated use and heavy lifting at work daily. Coronavirus screen: Vaccine status: Patient reports being unvaccinated. Client denies travel out of the [place] in the last 14 days. At this time, the client does not indicate any symptoms associated with coronavirus-19. Ebola Screen: Patient denies travel to an Ebola-affected area in the 21 days before illness onset. Initial Sepsis Screen: Does the patient meet any 2 criteria? No. Patient's initial sepsis screen is negative. Does the patient have a suspected source of infection? Yes: Bone or joint infection. Risk Assessment: Do you want to hurt yourself or someone else? Patient reports no desire to harm self or others. Onset of symptoms was August 26, 2021. 11:00 Method Of Arrival: Ambulatory ll1 11:00 Acuity: [place] 4 ll1 Triage Assessment: 11:02 General: Appears in no apparent distress. Behavior is calm, cooperative, appropriate ll1 for age. Pain: Denies pain. Musculoskeletal: Circulation, motion, and sensation intact. Capillary refill < 3 seconds, Reports pain in R shoulder. Historical: - Allergies: 11:00 Amoxicillin; ll1 - PMHx: 11:00 None; ll1 - PSHx: 11:00 None; ll1 - Immunization history:: Client reports having NOT received the Covid vaccine. - Social history:: Smoking status: Reported history of juuling and/or vaping. - Family history:: not pertinent. Screenin:38 Abuse screen: Denies threats or abuse. Denies injuries from another. Nutritional ph screening: No deficits noted. Tuberculosis screening: No symptoms or risk factors identified. Fall Risk None identified. Assessment: 11:37 General: Appears in no apparent distress. comfortable, slender, Behavior is calm, ph cooperative, appropriate for age. Pain: Complains of pain in posterior aspect of right shoulder. Neuro: Level of Consciousness is awake, alert, obeys commands, Oriented to person, place, time, situation. Cardiovascular: Capillary refill < 3 seconds in bilateral fingers Patient's skin is warm and dry. Respiratory: Airway is patent Respiratory effort is even, unlabored. Derm: Skin is intact, Skin is pink, warm \T\ dry. Musculoskeletal: Circulation, motion, and sensation intact. Range of motion: intact in all extremities, Swelling absent. 13:08 Reassessment: Patient appears in no apparent distress at this time. Patient and/or ph family updated on plan of care and expected duration. Pain level reassessed. Patient is alert, oriented x 3, equal unlabored respirations, skin warm/dry/pink. Pt d/c home. Vital Signs: 11:00 BP 152 / 85; Pulse 51; Resp 16; Temp 98.5; Pulse Ox 98% on R/A; Weight 74.84 kg; Height ll1 6 ft. 0 in. (182.88 cm); Pain 0/10; 13:08 BP 139 / 78; Pulse 54; Resp 18; Temp 98.2; Pulse Ox 99% on R/A; ph 11:00 Body Mass Index 22.38 (74.84 kg, 182.88 cm) ll1 ED Course: 10:55 Patient arrived in ED. ll1 10:55 Arm band placed on Patient placed in an exam room, on a stretcher. ll1 11:01 Jose Hadley MD is Attending Physician. ma2 11:02 Triage completed. ll1 11:14 Patricia Schaefer, RN is Primary Nurse. ph 11:39 Patient has correct armband on for positive identification. Bed in low position. Call ph light in reach. 11:45 XRAY Shoulder RIGHT 2 view In Process Unspecified. EDMS 13:08 No provider procedures requiring assistance completed. Patient did not have IV access ph during this emergency room visit. Administered Medications: No medications were administered Medication: 11:38 VIS not applicable for this client. ph Outcome: 12:25 Discharge ordered by . ma2 13:09 Discharged to home ambulatory. ph 13:09 Condition: good 13:09 Discharge instructions given to patient, Instructed on discharge instructions, follow up and referral plans. medication usage, Demonstrated understanding of instructions, follow-up care, Prescriptions given X 2. 13:20 Patient left the ED. ph Signatures: Dispatcher [employer] Patricia Ortiz RN RN ph Jose Hadley MD MD ma2 Jesus Salcedo RN RN ll1 Corrections: (The following items were deleted from the chart) 11:03 11:00 Chief complaint: Patient states: R shoulder pain since . No trauma, but ll1 repeated use and heavy lifting at work daily. ll1
[2021-08-29 14:10] VITALS: BP 139/78; TEMP 98.2; O2SAT 99
== END 2021-08-29 13:20 | disposition home or self-care (01) ==
LOC: ER 10:48
DX: M25.511 Pain in right shoulder (principal); Z88.1 Allergy status to other antibiotic agents
CPT/HCPCS: 99283

== ENCOUNTER 2021-09-03 22:09 | Emergency (ER) | payer SELFPAY ==
--- OUTSIDE RECORDS SUMMARY | 2021-09-03 22:13 | XMS REPORT | Continuity of Care Document ---
:1995 Author Organization [facility] t Address [address] [place] [address] 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 Primary Care Physician Only, Db Test Attending Clinician Unavailable Guido AIR CONDITIONING INSTALLER SUPERVISOR Attending Clinician Anne HUTCHISON, Gene Attending Clinician Payers Payer Name Policy Type Policy Number Effective Date Expiration Date S ource Problems Condition Condition Condition Status Onset Resolution Last Treating Co mments Source Name Details Category Date Date Treatment Clinician Date 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 U nivers a by a by 03-16 [place] electro[place] di[place] [address] [place] [address] Dizziness Dizziness Disease Active Uni vers ity of [facility] Allergies, Adverse Reactions, Alerts Allergy Allergy Status Severity Reaction(s) Onset Inactive Treating Comm ents Source Name Type Date Date Clinician Amoxicil Propensi Active Unknown - 2016-03 Uni vers dali ty to See comments 03-19 ity of adverse 00:00: [place] reaction [address] [place] [address] s [place] Social History Social Habit Start Date Stop Date Quantity Comments Source Exposure to Not sure University SARS-CoV-2 [facility] (event) [place] Alcohol intake 2020-08-09 2020-08-09 Ex-drinker University 00:00:00 00:00:00 (finding) [facility] Tobacco use and 2019-07-17 2019-07-17 Never used Universit y of exposure 00:00:00 00:00:00 [facility] History of 2019-06-17 Cigarette Smoker Universi ty of tobacco use 00:00:00 [facility] Sex Assigned At [birth year] Universit y of 00:00:00 00:00:00 [facility] Smoking Status Start Date Stop Date Source Former smoker 2019-07-17 00:00:00 2019-07-17 00:00:00 [facility] Medications Ordered Filled Start Stop Current Ordering Indication Dosage Frequency Signature Comments Components Source Medication Medication Date Date Medication? Clinician (SIG) Name Name ibuprofen Yes [id number] 800mg Take 1 U nivers 800 mg 3-13 tablet by ity of tablet 00:00: mouth [place] 00 every 8 Medical (eight) Branch hours. ondansetron Yes [id number] 4mg Take 1 Univers 4 mg 3-13 tablet by ity of disintegrat 00:00: mouth [place] ing tablet 00 every 4 Medica l (four) Branch hours as needed for Nausea and Vomiting (N/V). Procedures This patient has no known procedures. Encounters Start End Encounter Admission Attending Care Care Encounter Source Date/Time Date/Time Type Type Clinicians Facility Department ID 2021-03-21 2021-03-21 Laboratory Only, Ang Db Test [facility] [id number] [facility] 11:15:00 11:26:33 Only [facility] [id number] ity of [place] [id number] Yvan as BEVERLY?BLEA [phone] [place] rosa [address] MEDICAL OFFICE BUILDING 2019-10-01 2019-10-01 Office Anne [facility] [id number] 13:03:53 15:48:49 Visit Mikhail Barkley [place] [id number] [employer] [id number] [facility] [phone] [facility] 092 [facility] Results This patient has no known results.
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
[2021-09-04] MEDS ORDERED: SMZ./TMP. 800/160 MG TABLET ONE (02:03)
[2021-09-04 02:22] VITALS: TEMP 98.6
[2021-09-04 02:28] VITALS: BP 133/89; O2SAT 99
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
== END 2021-09-04 02:01 | disposition home or self-care (01) ==
LOC: ER 22:09
PROC: 0JQ00ZZ Repair Scalp Subcutaneous Tissue and Fascia, Open Approach (ICD-10-PCS; principal; 2021-09-04)
DX: S01.01XA Laceration without foreign body of scalp, initial encounter (principal); S21.219A Laceration without foreign body of unspecified back wall of thorax without penetration into thoracic cavity, initial encounter; T14.8XXA Other injury of unspecified body region, initial encounter; Y00.XXXA Assault by blunt object, initial encounter; Z88.1 Allergy status to other antibiotic agents
CPT/HCPCS: 70450; 70486; 72125; 76377; 99284

== ENCOUNTER 2021-09-13 09:45 | Emergency (ER) | payer SELFPAY ==
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
[2021-09-13 10:49] VITALS: BP 126/68; TEMP 98.2; O2SAT 100
== END 2021-09-13 10:35 | disposition home or self-care (01) ==
LOC: ER 09:45
DX: Z48.02 Encounter for removal of sutures (principal); Z88.1 Allergy status to other antibiotic agents

== ENCOUNTER 2022-07-07 23:41 | Emergency (ER) | payer SELFPAY ==
--- OUTSIDE RECORDS SUMMARY | 2022-07-07 23:45 | XMS REPORT | Continuity of Care Document ---
:1995 Author Organization [facility] t Address [address] [place] [address] [place] [id number] Care Team Providers Name Role Phone Doris Bailey Primary Care Physician Only, Ang Db Test Attending Clinician Unavailable Lisa Stapleton Attending Clinician LISA WATSON Attending Clinician Unavailable Florina Barrett MD Attending Clinician Elias Porter MD Attending Clinician JACK CLEMENT Attending Clinician Unavailable Marvel Hanson MD Attending Clinician MARVEL HANSON Attending Clinician Unavailable Mikhail Rodríguez MD Attending Clinician Doctor Unassigned, [place] Attending Clinician Unavailable Jack Clement MD Attending Clinician MIKHAIL RODRÍGUEZ Attending Clinician Unavailable MIKHAIL RODRÍGUEZ Attending Clinician Unavailable DOUG RONQUILLO Attending Clinician Unavailable Denise HUTCHISON, Leandro Martínez Attending Clinician [phone] Doug Ronquillo MD Attending Clinician Susie Rivera MD Attending Clinician SUSIE RIVERA Attending Clinician Unavailable ELIAS PORTER Attending Clinician Unavailable Clara Pressley RN Attending Clinician Unavailable Adrian Mendenhall Attending Clinician ADRIAN SIGALA Attending Clinician Unavailable Arik YING, Sarah Herrera Attending Clinician Unavailable Florence Cervantes MD Attending Clinician Pob1, Acute Care Clinic Attending Clinician Unavailable FLORENCE CERVANTES Attending Clinician Unavailable Doris Bailey Attending Clinician DORIS PFEIFFER Attending Clinician Unavailable Oxana Wilkinson DO Attending Clinician OXANA WILKINSON Attending Clinician Unavailable Erickson Lopez Attending Clinician ELIAS PORTER Admitting Clinician Unavailable ADRIAN SIGALA Admitting Clinician Unavailable Payers Payer Name Policy Type Policy Number Effective Date Expiration Date [facility] [id number] 2019 CHOICE MEDICAID 00:00:00 Problems Condition Condition Condition Status Onset Resolution Last Treating Co mments Source Name Details Category Date Date Treatment Clinician Date 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 U nivers a by a by 03-16 [place] di[place] [address] [place] [address] Dizziness Dizziness Disease Active Uni vers ity of [facility] Allergies, Adverse Reactions, Alerts Allergy Allergy Status Severity Reaction(s) Onset Inactive Treating Comm ents Source Name Type Date Date Clinician Amoxicil Propensi Active Unknown - 2016-03 Uni vers dali ty to See comments 03-19 ity of adverse 00:00: [place] reaction [facility] s [place] Social History Social Habit Start Date Stop Date Quantity Comments Source Exposure to Not sure [facility] SARS-CoV-2 [facility] (event) Branch Alcohol intake 2020-08-09 2020-08-09 Ex-drinker University 00:00:00 00:00:00 (finding) [facility] Tobacco use and 2019-07-17 2019-07-17 Never used Universit y of exposure 00:00:00 00:00:00 [facility] History of 2019-06-17 Cigarette Smoker Universi ty of tobacco use 00:00:00 [facility] Sex Ass[birth year] Universit y of 00:00:00 00:00:00 [facility] Smoking Status Start Date Stop Date Source Former smoker 2019-07-17 00:00:00 2019-07-17 [facility]00 [facility] Medications Ordered Filled Start Stop Current Ordering Indication Dosage Frequency Signature Comments Components Source Medication Medication Date Date Medication? Clinician (SIG) Name Name ondansetron Yes [id number] 4mg Take 1 Univers 4 mg 3-13 tablet by ity of disintegrat 00:00: mouth [place] ing tablet 00 every 4 Medica l (four) Branch hours as needed for Nausea and Vomiting (N/V). ibuprofen Yes [id number] 800mg Take 1 U nivers 800 mg 3-13 tablet by ity of tablet 00:00: mouth [place] 00 every 8 Medical (eight) Branch hours. Procedures This patient has no known procedures. Encounters Start End Encounter Admission Attending Care Care Encounter Source Date/Time Date/Time Type Type Clinicians Facility Department ID 2021-01-10 Emergency [facility] [id number] Univers [facility] 2021-01-10 Emergency [facility] [id number] Univers 05:48:35 [facility] 2021-03-21 2021-03-21 Laboratory Only, Ang Db Test [facility] 1.2.8 40.114 [id number] Univers 11:15:00 11:26:33 Only Lisa Watson [facility] [id number] [facility] [id number] [facility] [place] [facility] as BEVERLY?BLEA [phone] [address] MEDICAL OFFICE BUILDING 2021-03-21 2021-03-21 Outpatient R WALTER [facility] [id number] Univers 11:15:00 11:15:00 [facility] 2020-08-09 2020-08-09 Emergency [facility] [id number] Univers 14:43:00 15:18:00 Florina Julian [id number] [facility] [id number] [facility] [phone] [facility] 084 Branch 2020-05-23 2020-05-23 Emergency [facility] 1.2.284.005 [id number] Univers 16:04:00 16:36:00 Elias Julian [id number] i ty of [place] [id number] [place] [phone] [facility] 084 [place] 2020-02-21 2020-02-21 [facility] [id number] Univers 15:20:00 15:20:00 JACK marcioashley o f [facility] 2020-02-14 2020-02-14 Office [facility] 1.2.840.114 [id number] Univers 14:29:22 14:59:22 Visit [facility] [id number] it y of [place] [id number] [place]van as Professio [phone] Ca dical nal 044 [place] Office [facility] 2020-02-14 2020-02-14 Outpatient [facility] [id number] Univers 14:30:00 14:30:00 MARVEL greene [facility] 2020-02-13 2020-02-13 Telephone [facility] 1.2.840.114 [id number] Univers 00:00:00 00:00:00 Mikhail Julian [id number] ity of [place] [id number] Profess[place] [phone] [facility] 092 [facility] 2020-02-12 2020-02-12 Telephone [facility] 1.2.840.114 [id number] Univers 00:00:00 00:00:00 Mikhail Julian [id number] ity of [id number] Profess[place] [phone] Ca dical nal 092 [facility] 2020-01-31 2020-01-31 Telephone [facility] 1.2.840.114 [id number] Univers 00:00:00 00:00:00 Mikhail Julian [id number] ity of [place] [id number] [phone] [facility] nal 092 [facility] 2020-01-22 2020-01-22 Orders Doctor SLOAN 1.2.840.114 [id number] Univers 00:00:00 00:00:00 Only Unassigned, JENAE [id number] ity of [place] [facility] [id number] Yvan as [phone] [address] 2020-01-15 2020-01-15 Office [facility] 1.2.840.114 [id number] Univers 09:25:22 09:26:38 Visit Jack Julian [id number] ity of [place] [id number] [place] Profess[place] [phone] Ca dical nal 059 [facility] 2020-01-15 2020-01-15 Outpatient [facility] [id number] Univers 09:00:00 09:00:00 JACK greene o f [facility] 2020-01-14 2020-01-14 Telephone [facility] 1.2.840.114 [id number] Univers 00:00:00 00:00:00 Mikhail Julian [id number] ity of [place] [id number] [place] Profess[place] [phone] Ca dic[address] 2019-12-13 2019-12-13 Telephone [facility] 1.2.840.114 [id number] Univers 00:00:00 00:00:00 Mikhail Julian [id number] ity of [place] [id number] [place] Profess[place] [phone] [facility] [address] [place] [address] 2019-10-01 2019-10-01 Office [facility] 1.2.840.114 [id number] 13:03:53 15:48:49 Visit Mikhail Julian [id number] [place] [id number] Professio [phone] [address] 2019-10-01 2019-10-01 Office [facility] 1.2.840.114 [id number] [facility] 13:03:53 15:48:49 Visit Mikhail Julian [id number] ity of [place] [id number] [place] Profess[place] [phone] Me dic[address] 2019-10-01 2019-10-01 Outpatient R MIKHAIL RODRÍGUEZ [facility] [id number] Univers 13:00:00 13:00:00 MIKHAIL RODRÍGUEZ ity [facility] 2019-09-10 2019-09-10 Outpatient R EMERSON [facility] [id number] Univers 09:30:00 09:30:00 DOUG ity [facility] 2019-09-10 2019-09-10 TelemedicLeandro Ly o[place] [facility] 1.2.840.114 [id number] Univers 07:13:34 07:43:34 ne Visit Doug Ronquillo [facility] 350.1.13 .10 ity of [facility] [id number] [place] [phone] [place] 872601 [place] 2019-09-04 2019-09-04 Case [facility] 1.2.840.114 [id number] Univers 00:00:00 00:00:00 Management Wondiful A [place] [id number] ity of [place] [id number] Profess[place] [phone] [address] 2019-08-30 2019-08-30 Office [facility] 1.2.840.114 [id number] Univers 07:57:18 08:34:59 Visit Wondiful A [place] [id number] ity of [place] [id number] [place] [phone] [address] 2019-08-30 2019-08-30 Outpatient R ANKITA [facility] [id number] Univers 08:00:00 08:00:00 WONDIFUL ity o f [facility] 2019-08-25 2019-08-25 Emergency [facility] [id number] Univers 09:09:18 12:46:00 Elias [place] [id number] i ty of [place] [id number] [place] [phone] [address] 2019-08-25 2019-08-25 Emergency X [facility] ERT [id number] Univers 09:09:18 12:46:00 ELIAS ity of [facility] 2019-08-23 2019-08-23 Outpatient R ANKITA, [facility] [id number] Univers 11:45:00 11:45:00 WONDIFUL ity o f [facility] 2019-08-19 2019-08-19 Outpatient Barney RIVERA, [facility] [id number] Univers 10:15:00 10:15:00 WONDIFUL ity o f [facility] 2019-08-04 2019-08-04 Nurse NATHALIA Pressley 1.2.840.114 [id number] Univers 00:00:00 00:00:00 Triage Clara EMANUEL [id number] ity [facility] [id number] [place]van as [phone] [address] 2019-07-21 2019-07-21 Emergency [facility] 1.2.840.114 [id number] Univers 10:46:38 15:44:00 Adrianashley Julian [id number] i ty [facility] [id number] [place] [facility] [phone] [address] 2019-07-21 2019-07-21 Emergency X [facility] ERT [id number] Univers 10:46:38 15:44:00 ADRIAN ity [facility] 2019-07-21 2019-07-21 Nurse Codey SLOAN 1.2.840.114 [id number] Univers 00:00:00 00:00:00 Triage Sarah soria [id number] ity [facility] 4.2.7.2.686 [place]van as [phone] [address] 2019-07-19 2019-07-19 Telephone NATHALIA Cervantes 1.2.840.114 [id number] Univers 00:00:00 00:00:00 Florence EMANUEL [id number] it y [facility] 4.2.7.2.686 Yvan as [phone] [address] 2019-07-17 2019-07-17 Urgent Pob1, Acute Care Clinic [facility] 1. 2.840.114 [id number] Univers 13:14:32 15:30:36 Care Billy [facility] [id number] ity of [place] 4.2.7.2.686 [place]van as Professio [phone] Ca rosa nal [address] [place] [address] Office [facility] 2019-07-17 2019-07-17 Outpatient [facility] [id number] Univers 13:20:00 13:20:00 FLORENCE ity of [facility] 2019-06-10 2019-06-10 Telephone Pob1, Acute [facility] 1.2.840.114 [id number] Univers 00:00:00 00:00:00 [facility] [id number] ity of [place] 4.2.7.2.686 [place]van as Professio [phone] [address] Office [facility] 2019-06-05 2019-06-05 Telephone [facility] [id number] Univers 00:00:00 00:00:00 [facility] [id number] it y of [place] 4.2.7.2.686 Yvan as Professio [phone] Ca dicla nal [address] [place] [address] Office [facility] 2019-06-03 2019-06-03 Office Po, Acute [facility] 1. 2.840.114 [id number] Univers 12:10:14 12:57:04 Visit Doris Pfeiffer [facility] [id number] ity of [place] [id number] [place]van as Professio [phone] [facility] nal [address] [place] [address] Office [facility] 2019-06-03 2019-06-03 Outpatient R [facility] [id number] Univers 11:00:00 11:00:00 ity of [facility] 2019-05-20 2019-05-20 Office [facility] 1.2.840.114 [id number] Univers 16:35:16 17:16:10 Visit [facility] [id number] it y of [place] 4.2.7.2.686 Yvan as Professio [phone] [facility] nal [address] [place] [address] Office [facility] 2019-05-20 2019-05-20 Outpatient R [facility] [id number] Univers 15:40:00 15:40:00 DORIS greene [facility] 2019-05-17 2019-05-17 Emergency [facility] 1.2.840.114 [id number] Univers 00:42:53 00:58:00 Oxana Julian [id number] ity [facility] 4.2.7.2.686 [facility] [phone] [place] [address] [place] 2019-05-17 2019-05-17 Emergency X [facility] ERT [id number] Univers 00:42:53 00:42:53 OXANA greene [facility] 2018-11-11 2018-11-11 Emergency [facility] 1.2.059.863 [id number] Univers 18:57:29 19:41:00 Erickson Julian 350.1.13.10 i ty [facility] 4.2.7.2.686 [facility] [phone] [address] Results This patient has no known results.
--- NOTE | 2022-07-08 00:38 | EDPHYS ---
Physician Documentation [facility] Name: Pako Fontaine Age: 27 yrs Sex: Male : 1995 Arrival Date: 07/07/2022 Time: 23:41 Bed 20 Private MD: ED Physician Jayesh Austin HPI: 07/08 00:30 This 27 yrs old Male presents to ER via Ambulatory with complaints of Toothache. cp 00:30 The patient presents with pain, chronic problem. The problem is located in the upper cp and lower jaw. Onset: The symptoms/episode began/occurred last year. Duration: The symptoms are intermittent. Associated signs and symptoms: Pertinent negatives: anorexia, dysphagia, fever, inability to eat, vomiting. Severity of symptoms: in the emergency department the symptoms are unchanged, despite home interventions. Historical: - Allergies: 07/07 23:48 Amoxicillin; mb9 - Home Meds: 23:48 None [Active]; mb9 - PMHx: 23:48 None; mb9 - PSHx: 23:48 Tonsillectomy; ear tubes; Adenoid excision; mb9 - Immunization history:: Adult Immunizations up to date. - Social history:: Smoking status: Reported history of juuling and/or vaping. ROS: 07/08 00:30 Eyes: Negative for injury, pain, redness, and discharge. cp Constitutional: Negative for body aches, chills, fever. ENT: Positive for dental pain, Gum pain Negative for ear pain, sore throat, difficulty swallowing, difficulty handling secretions. Cardiovascular: Negative for chest pain. Respiratory: Negative for cough, shortness of breath, wheezing. Abdomen/GI: Negative for abdominal pain, vomiting, diarrhea, constipation. Neuro: Negative for altered mental status, dizziness, headache, weakness. 00:31 All other systems are negative. cp Exam: 00:35 Head/Face: Normocephalic, atraumatic. cp 00:35 Constitutional: The patient appears in no acute distress, alert, awake, non-toxic, well developed, well nourished. 00:35 Eyes: Periorbital structures: appear normal, Conjunctiva: normal, no exudate, no injection, Sclera: no appreciated abnormality, Lids and lashes: appear normal, bilaterally. 00:35 ENT: External ear(s): are unremarkable, Ear canal(s): are normal, clear, TM's: dullness, bilaterally, Nose: is normal, Mouth: Lips: moist, Oral mucosa: moist, Posterior pharynx: Airway: no evidence of obstruction, patent, Tonsils: are normal in appearance, swelling, is not appreciated, erythema, is not appreciated, exudate, is not appreciated, Dental exam: abscess, is not appreciated, dental caries, that is severe, diffusely, gum swelling, that is mild, diffusely, missing teeth, diffusely, pain, that is moderate, diffusely. 00:35 Neck: Lymph nodes: no appreciated lymphadenopathy. 00:35 Chest/axilla: Inspection: normal. 00:35 Cardiovascular: Rate: normal. 00:35 Respiratory: the patient does not display signs of respiratory distress, Respirations: normal, no use of accessory muscles, no retractions. 00:35 Abdomen/GI: Exam negative for discomfort, distension, guarding. Vital Signs: 07/07 23:46 BP 143 / 92; Pulse 62; Resp 18; Temp 99.1; Pulse Ox 100% on R/A; Weight 70.31 kg; mb9 Height 6 ft. 0 in. ; Pain 7/10; 23:50 BP 143 / 84; Pulse 57; Resp 15 S; Pulse Ox 100% on R/A; ha1 07/08 00:55 BP 133 / 80; Pulse 60; Resp 18 S; Pulse Ox 100% on R/A; ha1 07/07 23:46 Body Mass Index 21.02 (70.31 kg, 182.88 cm) mb9 07/07 23:46 Pain Scale: Adult mb9 MDM: 00:00 Patient medically screened. cp 00:04 Patient medically screened. jorden 00:30 Differential diagnosis: dental caries, dental abscess, pericoronitis, sepsis. cp 00:38 Data reviewed: vital signs, nurses notes. cp 00:38 Consideration of Admission/Observation Escalation of care including cp admission/observation considered. I considered the following discharge prescriptions or medication management in the emergency department Medications were administered in the Emergency Department. See MAR. Counseling: I had a detailed discussion with the patient and/or guardian regarding: the historical points, exam findings, and any diagnostic results supporting the discharge/admit diagnosis, the need for outpatient follow up, for definitive care, a dentist, maxillary facial surgery, to return to the emergency department if symptoms worsen or persist or if there are any questions or concerns that arise at home. Administered Medications: 00:41 Drug: Clindamycin PO 300 mg Route: PO; 1 01:07 Follow up: Response: No adverse reaction ha1 00:41 Drug: Ibuprofen PO 800 mg Route: PO; ha1 01:07 Follow up: Response: No adverse reaction ha1 00:41 Drug: Acetaminophen PO 650 mg Route: PO; ha1 01:06 Follow up: Response: No adverse reaction; Pain is decreased ha1 Disposition Summary: 07/08/22 00:38 Discharge Ordered Location: Home cp Problem: an ongoing problem cp Symptoms: have improved cp Condition: Stable cp Diagnosis - Other specified disorders of teeth and supporting structures cp Followup: cp - With: Con Marques DDS - When: 2 - 3 days - Reason: Recheck today's complaints Discharge Instructions: - Discharge Summary Sheet cp - Dental Pain cp Forms: - Medication Reconciliation Form cp - Thank You Letter cp - Antibiotic Education cp - Prescription Opioid Use cp Prescriptions: - Peridex 0.12 % Mucous Membrane Mouthwash - swish 15 milliliter by BUCCAL route 1 to 2 times per day swish, gargle, spit as cp directed; 1 unit; Refills: 0, Product Selection Permitted - Clindamycin HCl 150 mg Oral Capsule - take 1 capsule by ORAL route every 6 hours for 10 days; 40 capsule; Refills: 0, cp Product Selection Permitted - Ibuprofen 800 mg Oral Tablet - take 1 tablet by ORAL route every 8 hours As needed take with food; 30 tablet; cp Refills: 0, Product Selection Permitted Signatures: Jayesh Austin MD MD cha Page, Corey, PA PA cp Oma Donaldson RN RN ha1 Kiya Miranda RN RN mb9 Corrections: (The following items were deleted from the chart) 22:24 00:55 Constitutional: The patient appears in no acute distress, alert, awake, cp non-toxic, well developed, well nourished, cp 22:24 00:55 Head/Face: Normocephalic, atraumatic. cp cp 22:24 00:55 Eyes: Periorbital structures: appear normal, Conjunctiva: normal, no exudate, no cp injection, Sclera: no appreciated abnormality, Lids and lashes: appear normal, bilaterally, cp : 00:55 ENT: External ear(s): are unremarkable, Ear canal(s): are normal, clear, TM's: cp dullness, bilaterally, Nose: is normal, Mouth: Lips: moist, Oral mucosa: moist, Posterior pharynx: Airway: no evidence of obstruction, patent, Tonsils: are normal in appearance, swelling, is not appreciated, erythema, is not appreciated, exudate, is not appreciated, Dental exam: abscess, is not appreciated, dental caries, that is severe, diffusely, gum swelling, that is mild, diffusely, missing teeth, diffusely, pain, that is moderate, diffusely, cp : 00:55 Neck: Lymph nodes: no appreciated lymphadenopathy, cp cp 22: 00:55 Chest/axilla: Inspection: normal, cp cp : 00:55 Cardiovascular: Rate: normal, cp cp 00:55 Respiratory: the patient does not display signs of respiratory distress, cp Respirations: normal, no use of accessory muscles, no retractions, cp ::55 Abdomen/GI: Exam negative for discomfort, distension, guarding, cp cp 00:50 Constitutional: Negative for body aches, chills, fever, cp cp 00:50 Eyes: Negative for injury, pain, redness, and discharge, cp cp : 00:50 ENT: Positive for dental pain, Gum pain Negative for ear pain, sore throat, cp difficulty swallowing, difficulty handling secretions, cp : 00:50 Cardiovascular: Negative for chest pain, cp cp : 00:50 Respiratory: Negative for cough, shortness of breath, wheezing, cp cp : 00:50 Abdomen/GI: Negative for abdominal pain, vomiting, diarrhea, constipation, cp cp 00:50 Neuro: Negative for altered mental status, dizziness, headache, weakness, cp cp 00:50 All other systems are negative, cp cp 22: 00:45 This 27 yrs old Male presents to ER via Ambulatory with complaints of Toothache. cp cp : 00:45 The patient presents with pain, chronic problem, cp cp : 00:45 The problem is located in the upper and lower jaw, cp cp : 00:45 Onset: The symptoms/episode began/occurred last year, cp cp 00:45 Duration: The symptoms are intermittent, cp cp :45 Associated signs and symptoms: Pertinent negatives: anorexia, dysphagia, fever, cp inability to eat, vomiting, cp : Severity of symptoms: in the emergency department the symptoms are unchanged, cp despite home interventions, cp
--- NOTE | 2022-07-08 00:38 | ER ---
Nurse's Notes [facility] Name: Pako Fontaine Age: 27 yrs Sex: Male : 1995 Arrival Date: 07/07/2022 Time: 23:41 Bed 20 Private MD: Diagnosis: Other specified disorders of teeth and supporting structures Presentation: 07/07 23:46 Chief complaint: Patient states: "I've had a toothache for the last 5 years and mb9 infections. The lst infection started before February and it's still going on. I don't have insurance so I can't afford a dentist". Coronavirus screen: Vaccine status: Patient reports being unvaccinated. Ebola Screen: No symptoms or risks identified at this time. Initial Sepsis Screen: Does the patient meet any 2 criteria? No. Patient's initial sepsis screen is negative. Does the patient have a suspected source of infection? No. Patient's initial sepsis screen is negative. Risk Assessment: Do you want to hurt yourself or someone else? Patient reports no desire to harm self or others. Onset of symptoms was July 07, 2022. 23:46 Method Of Arrival: Ambulatory 9 23:46 Acuity: [place]WT[place] 4 mb9 Triage Assessment: 23:51 General: Appears uncomfortable, Behavior is cooperative. Pain: Complains of pain in mb9 mouth. EENT: Oral mucosa is dry. Poor dentition noted. EENT: Reports pain in top and bottom teeth. Neuro: Level of Consciousness is awake, alert, obeys commands, Oriented to person, place, time, situation, Appropriate for age. Cardiovascular: Patient's skin is warm and dry. Respiratory: Airway is patent Respiratory effort is even, unlabored, Respiratory pattern is regular, symmetrical. Derm: Skin is pink, warm \\T\\ dry. Musculoskeletal: Range of motion: intact in all extremities. Historical: - Allergies: 23:48 Amoxicillin; mb9 - Home Meds: 23:48 None [Active]; mb9 - PMHx: 23:48 None; mb9 - PSHx: 23:48 Tonsillectomy; ear tubes; Adenoid excision; mb9 - Immunization history:: Adult Immunizations up to date. - Social history:: Smoking status: Reported history of juuling and/or vaping. Screenin:53 [facility] ED Fall Risk Assessment (Adult) History of falling in the last 3 months, mb9 including since admission No falls in past 3 months (0 pts) Confusion or Disorientation No (0 pts) Intoxicated or Sedated No (0 pts) Impaired Gait No (0 pts) Mobility Assist Device Used No (0 pt) Altered Elimination No (0 pt) Score/Fall Risk Level 0 - 2 = Low Risk Oriented to surroundings, Maintained a safe environment, Educated pt \\T\\ family on fall prevention, incl call for assistance when getting out of bed. Abuse screen: Denies threats or abuse. Nutritional screening: No deficits noted. Tuberculosis screening: No symptoms or risk factors identified. Assessment: 23:50 General: Appears comfortable, Behavior is calm, cooperative. Pain: Complains of pain in ha1 mouth Pain does not radiate. Pain currently is 7 out of 10 on a pain scale. Quality of pain is described as throbbing. Neuro: Level of Consciousness is awake, alert, obeys commands, Oriented to person, place, time, situation. Cardiovascular: Patient's skin is warm and dry. Respiratory: Airway is patent Respiratory effort is even, unlabored, Respiratory pattern is regular, symmetrical. EENT: Poor dentition noted. pt. reports pain in the gums of teeth.. Musculoskeletal: Circulation, motion, and sensation intact. Range of motion: intact in all extremities. 07/08 00:55 Reassessment: Patient and/or family updated on plan of care and expected duration. Pain ha1 level reassessed. Patient is alert, oriented x 3, equal unlabored respirations, skin warm/dry/pink. Patient states feeling better. Patient states symptoms have improved. Vital Signs: 07/07 23:46 BP 143 / 92; Pulse 62; Resp 18; Temp 99.1; Pulse Ox 100% on R/A; Weight 70.31 kg; mb9 Height 6 ft. 0 in. ; Pain 7/10; 23:50 BP 143 / 84; Pulse 57; Resp 15 S; Pulse Ox 100% on R/A; ha1 07/08 00:55 BP 133 / 80; Pulse 60; Resp 18 S; Pulse Ox 100% on R/A; ha1 07/07 23:46 Body Mass Index 21.02 (70.31 kg, 182.88 cm) 9 07/07 23:46 Pain Scale: Adult mb9 ED Course: 07/07 23:44 Patient arrived in ED. ja2 23:48 Triage completed. mb9 23:49 Arm band placed on. mb9 23:52 Placed in gown. Bed in low position. Call light in reach. Side rails up X 1. Client mb9 placed on continuous cardiac and pulse oximetry monitoring. NIBP monitoring applied. 07/08 00:00 Jayesh Barber PA is PHCP. cp 00:00 Jayesh Austin MD is Attending Physician. cp 00:29 Oma Donaldson, RN is Primary Nurse. ha1 00:37 Con Marques DDS is Referral Physician. cp 01:08 No provider procedures requiring assistance completed. Patient did not have IV access ha1 during this emergency room visit. Administered Medications: 00:41 Drug: Clindamycin PO 300 mg Route: PO; ha1 01:07 Follow up: Response: No adverse reaction ha1 00:41 Drug: Ibuprofen PO 800 mg Route: PO; ha1 01:07 Follow up: Response: No adverse reaction ha1 00:41 Drug: Acetaminophen PO 650 mg Route: PO; ha1 01:06 Follow up: Response: No adverse reaction; Pain is decreased ha1 Medication: 07/07 23:49 VIS not applicable for this client. mb9 Outcome: 07/08 00:38 Discharge ordered by . cp 01:08 Discharged to home ambulatory. ha1 01:08 Condition: stable 01:08 Condition: stable 01:08 Discharge instructions given to patient, Instructed on discharge instructions, follow up and referral plans. medication usage, Demonstrated understanding of instructions, follow-up care, medications, Prescriptions given X 3. 01:09 Patient left the ED. ha1 Signatures: Jayesh Barber PA PA cp Alexander, Jessica 2 Oma Donaldson, RN RN ha1 Kiya Miranda RN RN mb9
[2022-07-08] MEDS ORDERED: ACETAMINOPHEN 325 MG TABLET ONE (00:44)
[2022-07-08] MEDS ORDERED: IBUPROFEN 400 MG TAB ONE (00:44)
[2022-07-08 02:23] VITALS: TEMP 99.1; O2SAT 100
[2022-07-08 02:26] VITALS: BP 133/80
== END 2022-07-08 01:09 | disposition home or self-care (01) ==
LOC: ER 23:41
DX: K08.89 Other specified disorders of teeth and supporting structures (principal)

== ENCOUNTER 2023-11-09 07:26 | Emergency (ER) | payer OTHER, SELFPAY ==
--- OUTSIDE RECORDS SUMMARY | 2023-11-09 07:30 | XMS REPORT | Continuity of Care Document ---
Author Name Unknown Address [address] [place] [address] [facility] thconnect Address [address] [place] [address] Care Team Providers Care Air Pumper Name Role Phone Kentrell REGISTERED MAIL CLERKDoris Primary Care Physician [phone] Only, Ang Db Test Attending Clinician Unavailabl Lisa Sheppard Attending Clinician [phone] LISA WATSON Attending Clinician Unavailable Nena HUTCHISON, Florina Tapia Attending Clinician [phone] Elias Porter MD Attending Clinician [phone] JACK CLEMENT Attending Clinician Unavailable Marvel Hanson MD Attending Clinician + [phone] MARVEL HANSON Attending Clinician Asim Rodríguez MD, Mikhail Barkley Attending Clinician [phone] Doctor Unassigned, Pinhook Attending Clinician U janie Clement MD, Jack Attending Clinician [phone] MIKHAIL RODRÍGUEZ Attending Clinician Unavail able MIKHAIL RODRÍGUEZ Attending Clinician Unavail able DOUG RONQUILLO Attending Clinician Unavailprice Walker MD, Leandro Martínez Attending Clin ician Doug Ronquillo MD Attending Clinician Susie Rivera MD Attending Clinician [phone] SUSIE RIVERA Attending Clinician Unavaila ELIAS Lindo Attending Clinician Unavailable Huan YING, Clara Moreno Attending Clinician Unavail able Adrian Mendenhall Attending Clinician [phone] ADRIAN SIGALA Attending Clinician Unavailable Sarah Elise RN Attending Clinician Elena vailable Florence Cervantes MD Attending Clinician [phone] [facility], [facility] Attending Clinician Unav ailable FLORENCE CERVANTES Attending Clinician Unavailable Doris Bailey Attending Clinician [phone] DORIS PFEIFFER Attending Clinician Unavailable Oxana Wilkinson DO Attending Clinician [phone] OXANA WILKINSON Attending Clinician Unavailab Erickson Miguel Attending Clinician [phone] ELIAS PORTER Admitting Clinician Unavailable ADRIAN SIGALA Admitting Clinician Unavailable Payers Payer Name Policy Type Policy Number Effective Date Expirati on Date Source [facility] MEDICAID [id number] 2019 00:00:00 Problems Condition Name Condition Details Condition Category Status Onset Date Resolution Date Last Treatment Date Treating Clinician Comments Source Bradycardi a by electrocar diogram Bradycardi a by electrocar diogram Disease Active 2019-03 00:00: 00 [facility] Dizziness Dizziness Disease Active [facility] Allergies, Adverse Reactions, Alerts Allergy Name Allergy Type Status Severity Reaction(s) Onset Date Inactive Date Treating Clinician Comments Source Amoxicil dali Propensi ty to adverse reaction s Active Unknown - See comments 2016-03 00:00: 00 [facility] Social History Social Habit Start Date Stop Date Quantity Comments Source [facility] Exposure to SARS-CoV-2 (event) 2021-02-19 00:00:00 2021-03-21 10:52:00 Not sure [facility] Alcohol intake 2019-10-01 00:00:00 2019-10-01 00:00:00 Ex-drinker (finding) [facility] Tobacco use and exposure 2019-07-17 00:00:00 2019-07-17 00:00:00 Smokeless tobacco non-user [facility] History of tobacco use 2019-06-17 00:00:00 Cigarette Smoker [facility] History of Social function 2019-05-20 00:00:00 2019-05-20 00:00:00 [facility] Sex Assigned At 1995 00:00:00 1995 00:00:00 [facility] Smoking Status Start Date Stop Date Source Ex-smoker 2019-07-17 00:00:00 2019-07-17 00:00:00 [facility] Medications Ordered Medication Name Filled Medication Name Start Date Stop Date Current Medication? Ordering Clinician Indication Dosage Frequency Signature (SIG) Comments Components Source ondansetron 4 mg disintegrat ing tablet 05-23 00:00: 00 Yes [id number] 4mg Take 1 tablet by mouth every 4 (four) hours as needed for Nausea and Vomiting (N/V). [facility] ibuprofen 800 mg tablet 05-23 00:00: 00 Yes [id number] 800mg Take 1 tablet by mouth every 8 (eight) hours. [facility] meclizine 12.5 mg tablet 19 00:00: 00 02-13 00:00 :00 No [id number] 12.5mg Take 1-2 tablets by mouth 3 (three) times daily as needed for Dizziness. [facility] ibuprofen 600 mg tablet 08-24 00:00: 00 02-13 00:00 :00 No [id number] 600mg Take 1 tablet by mouth every 6 (six) hours as needed for Pain (scale 4-6). [facility] methocarbam ol 500 mg tablet 08-24 00:00: 00 02-13 00:00 :00 No [id number] 500mg Take 1 tablet by mouth 4 (four) times daily. [facility] Encounters Start Date/Time End Date/Time Encounter Type Admission Type Attending Clinicians Care Facility Care Department Encounter ID Source 2021-01-10 22:11:02 Emergency [facility] [id number] [facility] 2021-01-10 05:48:35 Emergency [facility] [id number] [facility] 2021-03-21 11:15:00 2021-03-21 11:26:33 Laboratory Only Only, Ang Db Test Guido Lisa [facility] 1..840.114 350.1.13.10 4.2.7.2.686 [id number] [facility] 2021-03-21 11:15:00 2021-03-21 11:15:00 Outpatient R LISA WATSON [facility] [id number] [facility] 2020-08-09 14:43:00 2020-08-09 15:18:00 Emergency Florina Barrett [facility] 1..840.114 350.1.13.10 4.2.7.2.686 [id number] [facility] 2020-05-23 16:04:00 2020-05-23 16:36:00 Emergency Elias Porter [facility] 1..840.114 350.1.13.10 4.2.7.2.686 [id number] [facility] 2020-02-21 15:20:00 2020-02-21 15:20:00 Outpatient JACK MULLIGAN [facility] [id number] [facility] 2020-02-14 14:29:22 2020-02-14 14:59:22 Office Visit Marvel Hanson [facility] 1..840.114 350.1.13.10 4.2.7.2.686 [id number] [facility] 2020-02-14 14:30:00 2020-02-14 14:30:00 Outpatient MARVEL LAMB [facility] [id number] [facility] 2020-02-13 00:00:00 2020-02-13 00:00:00 Telephone Mikhail Rodríguez [facility] Building 1.2.840.114 350.1.13.10 4.2.7.2.686 [id number] [facility] 2020-02-12 00:00:00 2020-02-12 00:00:00 Telephone Mikhail Rodríguez [facility] Building 1.2.840.114 350.1.13.10 4.2.7.2.686 [id number] [facility] 2020-01-31 00:00:00 2020-01-31 00:00:00 Telephone Mikhail Rodríguez [facility] Building 1.2.840.114 350.1.13.10 4.2.7.2.686 [id number] [facility] 2020-01-22 00:00:00 2020-01-22 00:00:00 Orders Only Doctor Unassigned, Pinhook [facility] 1.2840.114 350.1.13.10 4.2.7.2.686 [id number] [facility] 2020-01-15 09:25:22 2020-01-15 09:26:38 [facility] 1.2.840.114 350.1.13.10 4.2.7.2.686 [id number] [facility] 2020-01-15 09:00:00 2020-01-15 09:00:00 [id number] 2020-01-14 00:00:00 2020-01-14 00:00:00 Telephone Mikhail Rodríguez [facility] Building 1.2.840.114 350.1.13.10 4.2.7.2.686 [id number] [facility] 2019-12-13 00:00:00 2019-12-13 00:00:00 Telephone Mikhail Rodríguez [facility] nal Building 1.2.840.114 350.1.13.10 4.2.7.2.686 [id number] [facility] 2019-10-10 00:00:00 2019-10-10 00:00:00 Patient Secure Msg Doctor Unassigned, Pinhook [facility] 1.2.840.114 350.1.13.10 4.2.7.2.686 [id number] [facility] 2019-10-01 13:03:53 2019-10-01 15:48:49 Office Visit Mikhail Rodríguez [facility] Building 1.2.840.114 350.1.13.10 4.2.7.2.686 [id number] 2019-10-01 13:03:53 2019-10-01 15:48:49 Office Visit Mikhail Rodríguez [facility] Building 1.2.840.114 350.1.13.10 4.2.7.2.686 [id number] [facility] 2019-10-01 13:00:00 2019-10-01 13:00:00 Outpatient Barney RODRÍGUEZ MIKHAIL RODRÍGUEZ MIKHAIL [facility] [id number] [facility] 2019-09-10 09:30:00 2019-09-10 09:30:00 Outpatient DOUG CARLTON [facility] [id number] [facility] 2019-09-10 07:13:34 2019-09-10 07:43:34 Telemedici ne Visit Leandro Walker Joseph Marc [facility] 1..840.114 350.1.13.10 4.2.7.2.686 [id number] [facility] 2019-09-04 00:00:00 2019-09-04 00:00:00 Case Management Susie Rivera [facility] 1.2.840.114 350.1.13.10 4.2.7.2.686 [id number] [facility] 2019-08-30 07:57:18 2019-08-30 08:34:59 Office Visit Susie Rivera [facility] 1.2.840.114 350.1.13.10 4.2.7.2.686 [id number] [facility] 2019-08-30 08:00:00 2019-08-30 08:00:00 Outpatient R SUSIE RIVERA [facility] [id number] [facility] 2019-08-25 09:09:18 2019-08-25 12:46:00 Emergency Elias Porter [facility] 1.2.840.114 350.1.13.10 4.2.7.2.686 [id number] [facility] 2019-08-25 09:09:18 2019-08-25 12:46:00 Emergency X ELIAS PORTER [facility] [id number] [facility] 2019-08-23 11:45:00 2019-08-23 11:45:00 Outpatient R SUSIE RIVERA [facility] [id number] [facility] 2019-08-19 10:15:00 2019-08-19 10:15:00 Outpatient R SUSIE RIVERA [facility] [id number] [facility] 2019-08-04 00:00:00 2019-08-04 00:00:00 Nurse Triage Clara Pressley [facility] 1.2.840.114 350.1.13.10 4.2.7.2.686 [id number] [facility] 2019-07-21 10:46:38 2019-07-21 15:44:00 Emergency Adrian Sigala [facility] 1.2840.114 350.1.13.10 4.2.7.2.686 [id number] [facility] 2019-07-21 10:46:38 2019-07-21 15:44:00 Emergency X ADRIAN SIGALA [facility] [id number] [facility] 2019-07-21 00:00:00 2019-07-21 00:00:00 Nurse Triage Sarah Jovel [facility] 1.2840.114 350.1.13.10 4.2.7.2.686 [id number] [facility] 2019-07-19 00:00:00 2019-07-19 00:00:00 Telephone Billy [facility] 1.2840.114 350.1.13.10 4.2.7.2.686 [id number] [facility] 2019-07-17 13:14:32 2019-07-17 15:30:36 Urgent Care Pob1, Acute Care Clinic Florence Cervantes [facility] 1..114 350.1.13.10 4.2.7.2.686 [id number] [facility] 2019-07-17 13:20:00 2019-07-17 13:20:00 Outpatient R BILLY [facility] [id number] [facility] 2019-06-10 00:00:00 2019-06-10 00:00:00 Telephone Po, Acute Care [facility] 1..114 350.1.13.10 4.2.7.2.686 [id number] [facility] 2019-06-05 00:00:00 2019-06-05 00:00:00 Telephone Doris Pfeiffer [facility] 1..114 350.1.13.10 4.2.7.2.686 [id number] [facility] 2019-06-03 12:10:14 2019-06-03 12:57:04 [facility] Pob[facility] 1.20114 350.1.13.10 4.2.7.2.686 [id number] [facility] 2019-06-03 11:00:00 2019-06-03 11:00:00 Outpatient R [facility] [id number] [facility] 2019-05-20 16:35:16 2019-05-20 17:16:10 Office Visit Kentrell [facility] Building One 1.114 350.1.13.10 4.2.7.2.686 [id number] [facility] 2019-05-20 15:40:00 2019-05-20 15:40:00 Outpatient R NEVAEH PFEIFFERTHIA [facility] [id number] [facility] 2019-05-17 00:42:53 2019-05-17 00:58:00 Emergency Oxana Wilkinson [facility] 1.2840.114 350.1.13.10 4.2.7.2.686 [id number] [facility] 2019-05-17 00:42:53 2019-05-17 00:42:53 Emergency X OXANA WILKINSON [facility] E[facility] [id number] [facility] 2018-11-11 18:57:29 2018-11-11 19:41:00 Emergency Erickson Renae [facility] 1.2840.114 350.1.13.10 4.2.7.2.686 [id number] [facility]
--- NOTE | 2023-11-09 07:46 | ER ---
Nurse's Notes [facility] Name: Pako Fontaine Age: 28 yrs Sex: Male : 1995 Arrival Date: 11/09/2023 Time: 07:26 Bed IW1 Private MD: Diagnosis: Unspecified otitis externa, right ear Presentation: 11/08 07:42 Chief complaint: Patient states: R ear pain and pus-like drainage for 1 year. ll1 Coronavirus screen: Client denies travel out of the [place] in the last 14 days. At this time, the client does not indicate any symptoms associated with coronavirus-19. Ebola Screen: Patient denies travel to an Ebola-affected area in the 21 days before illness onset. Initial Sepsis Screen: Does the patient meet any 2 criteria? No. Patient's initial sepsis screen is negative. Does the patient have a suspected source of infection? No. Patient's initial sepsis screen is negative. Risk Assessment: Do you want to hurt yourself or someone else? Patient reports no desire to harm self or others. Onset of symptoms was November 08, 2022. 07:42 Method Of Arrival: Ambulatory ll1 07:42 Acuity: [place] 4 ll1 Triage Assessment: 07:42 General: Appears in no apparent distress. Behavior is calm, cooperative, appropriate ll1 for age. Pain: Complains of pain in right ear Quality of pain is described as aching. EENT: Reports pain in right ear since pus-like drainage from R ear. Historical: - Allergies: 07:41 No Known Allergies; ll1 - PMHx: 07:41 None; ll1 - PSHx: 07:41 Adenoid excision; ear tubes; Tonsillectomy; ll1 - Immunization history:: Adult Immunizations up to date. - Infectious Disease History:: Denies. - Social history:: Smoking status: Reported history of juuling and/or vaping. - Family history:: not pertinent. Screenin:[facility] ED Fall Risk Assessment (Adult) History of falling in the last 3 months, ll1 including since admission No falls in past 3 months (0 pts) Confusion or Disorientation No (0 pts) Intoxicated or Sedated No (0 pts) Impaired Gait No (0 pts) Mobility Assist Device Used No (0 pt) Altered Elimination No (0 pt) Score/Fall Risk Level 0 - 2 = Low Risk Maintained a safe environment, Hourly rounding (assess needs \T\ fall precautionary measures) done. Abuse screen: Denies threats or abuse. Nutritional screening: No deficits noted. Tuberculosis screening: No symptoms or risk factors identified. Assessment: 07:50 Reassessment: No changes from previously documented assessment. Patient and/or family ll1 updated on plan of care and expected duration. Pain level reassessed. Patient is alert, oriented x 3, equal unlabored respirations, skin warm/dry/pink. Vital Signs: 07:42 BP 144 / 101; Pulse 59; Resp 16; Temp 97.5; Pulse Ox 100% on R/A; Weight 68.04 kg; ll1 Height 6 ft. 0 in. ; Pain 3/10; 07:50 Resp 15; Pain 3/10; ll1 07:42 Body Mass Index 20.34 (68.04 kg, 182.88 cm) ll1 07:42 Pain Scale: Adult ll1 07:50 Pain Scale: Adult ll1 ED Course: 07:30 Patient arrived in ED. ra3 07:32 Paulo Beck MD is Attending Physician. rt 07:41 Arm band placed on. ll1 07:42 Triage completed. ll1 07:45 Hope Malagon MD is Referral Physician. rt 07:50 Patient has correct armband on for positive identification. Provided Education on: ll1 finish prescribed antibiotics. 07:50 No provider procedures requiring assistance completed. Patient did not have IV access ll1 during this emergency room visit. Administered Medications: No medications were administered Medication: 07:50 VIS not applicable for this client. ll1 Outcome: 07:45 Discharge ordered by . rt 07:50 Patient left the ED. ll1 07:50 Discharged to home ambulatory, ll1 07:50 Condition: stable 07:50 Discharge instructions given to patient, Instructed on discharge instructions, follow up and referral plans. medication usage, Demonstrated understanding of instructions, follow-up care, medications, Prescriptions given X 1, Signatures: Jesus Salcedo RN RN ll1 Paulo Beck MD MD rt Kell King ra3 Corrections: (The following items were deleted from the chart) 07:42 07:41 Allergies: Amoxicillin; ll1 ll1
--- NOTE | 2023-11-09 07:46 | EDPHYS ---
Physician Documentation [facility] Name: Pako Fontaine Age: 28 yrs Sex: Male : 1995 Arrival Date: 11/09/2023 Time: 07: Bed IW1 Private MD: ED Physician Paulo Beck HPI: 11/08 07:46 This 28 yrs old Male presents to ER via Ambulatory with complaints of Ear Pain - rt discharge. 07:46 Patient presents to the ED with a discharge from the right ear with pain for the past rt year. Patient noticed pus on a Q-tip. Denies other acute complaints at this time, symptoms are mild in severity, no other aggravating or alleviating factors.. Historical: - Allergies: 07:41 No Known Allergies; ll1 - PMHx: 07:41 None; ll1 - PSHx: 07:41 Adenoid excision; ear tubes; Tonsillectomy; ll1 - Immunization history:: Adult Immunizations up to date. - Infectious Disease History:: Denies. - Social history:: Smoking status: Reported history of juuling and/or vaping. - Family history:: not pertinent. ROS: 07:46 Constitutional: Negative for fever, chills, and weight loss, Cardiovascular: Negative rt for chest pain, palpitations, and edema, Respiratory: Negative for shortness of breath, cough, wheezing, and pleuritic chest pain, Skin: Negative for injury, rash, and discoloration, Neuro: Negative for headache, weakness, numbness, tingling, and seizure, 07:46 ENT: Positive for drainage from ear(s), ear pain, Exam: 07:46 Constitutional: This is a well developed, well nourished patient who is awake, alert, rt and in no acute distress. Head/Face: Normocephalic, atraumatic. Cardiovascular: Regular rate and rhythm with a normal S1 and S2. No gallops, murmurs, or rubs. Normal PMI, no JVD. No pulse deficits. Respiratory: Lungs have equal breath sounds bilaterally, clear to auscultation and percussion. No rales, rhonchi or wheezes noted. No increased work of breathing, no retractions or nasal flaring. Skin: Warm, dry with normal turgor. Normal color with no rashes, no lesions, and no evidence of cellulitis. MS/ Extremity: Pulses equal, no cyanosis. Neurovascular intact. Full, normal range of motion. Neuro: Awake and alert, GCS 15, oriented to person, place, time, and situation. Cranial nerves II-XII grossly intact. Motor strength 5/5 in all extremities. Sensory grossly intact. Cerebellar exam normal. Normal gait. 07:46 ENT: Otorrhea noted in the right EAC, no obvious tympanic membrane rupture, no signs of mastoiditis, left TM is clear. Vital Signs: 07:42 BP 144 / 101; Pulse 59; Resp 16; Temp 97.5; Pulse Ox 100% on R/A; Weight 68.04 kg; ll1 Height 6 ft. 0 in. ; Pain 3/10; 07:50 Resp 15; Pain 3/10; ll1 07:42 Body Mass Index 20.34 (68.04 kg, 182.88 cm) ll1 07:42 Pain Scale: Adult ll1 07:50 Pain Scale: Adult ll1 MDM: 07:40 Patient medically screened. rt 07:50 Differential diagnosis: otitis externa. Data reviewed: vital signs, nurses notes. rt Counseling: I had a detailed discussion with the patient and/or guardian regarding the historical points, exam findings, and any diagnostic results supporting the discharge/admit diagnosis, the need for outpatient follow up, to return to the emergency department if symptoms worsen or persist or if there are any questions or concerns that arise at home. Administered Medications: No medications were administered Disposition Summary: 11/09/23 07:45 Discharge Ordered Notes: Location: Home rt Problem: new rt Symptoms: are unchanged rt Condition: Stable rt Diagnosis - Unspecified otitis externa, right ear rt Followup: rt - With: Hope Malagon MD - When: 5 - 6 days - Reason: Discharge Instructions: - Discharge Summary Sheet ll1 - Ear Drops, Adult rt - Otitis Externa rt Forms: - Work release form ll1 - Medication Reconciliation Form rt - Antibiotic Education rt - Prescription Opioid Use rt - Patient Portal Instructions rt - Leadership Thank You Letter rt Prescriptions: - Ciprodex 0.3-0.1 % Otic drops, suspension - instill 4 drops OTIC route every 12 hours for 7 days , for ears ONLY; 1 Each; rt Refills: 0, Product Selection Permitted Signatures: Jesus Salcedo RN RN ll1 Paulo Beck MD MD rt Corrections: (The following items were deleted from the chart) 07:42 07:41 Allergies: Amoxicillin; ll1 ll1
== END 2023-11-09 07:50 | disposition home or self-care (01) ==
LOC: ER 07:26
DX: H60.91 Unspecified otitis externa, right ear (principal)
CPT/HCPCS: 99283